=== PATIENT | male | born 1940 | race Caucasian/White ===

== ENCOUNTER 2020-07-10 06:28 | Outpatient (REF) | payer MEDICARE, OTHER, SELFPAY ==
[2020-07-10 14:31] LABS: SARS COV2 PCR INHOUSE NEGATIVE (Negative)
[2020-07-15 02:31] LABS: Bullous Pemphigoid BP 230 Ab 42 U/mL (<9)
[2020-07-15 04:06] LABS: Bullous Pempigoid BP 180 Ab 34 U/mL
== END 2020-07-10 06:29 | disposition home or self-care (01) ==
LOC: HO.HSH3W 06:28
PROVIDERS: Visit Provider Nurse Practitioner
DX: L10.9 Pemphigus, unspecified (principal); Z20.828 Contact with and (suspected) exposure to other viral communicable diseases
CPT/HCPCS: 83520; 87635

== ENCOUNTER 2020-09-13 11:31 | Outpatient (REF) | payer MEDICARE, OTHER, SELFPAY | END 2020-09-13 11:32 | disposition home or self-care (01) | LOC: HO.HSH3W 11:31 | PROVIDERS: Visit Provider Nurse Practitioner | DX: L12.0 Bullous pemphigoid (principal); R21 Rash and other nonspecific skin eruption | CPT/HCPCS: 88300; 88305 ==

== ENCOUNTER 2020-10-04 06:24 | Outpatient (REF) | payer MEDICARE, OTHER, SELFPAY ==
[2020-10-04 09:22] LABS: MANUAL DIFF FLAG NO
[2020-10-04 09:29] LABS: Basophils Percent Auto 0.3 % (0-2); Eosinophils Absolute Auto 0.1 X10*3/uL (0.0-0.4); Eosinophils Percent Auto 1.4 % (0-4); Hematocrit 35.6 % (42-52); Hemoglobin 12.2 g/dl (14.0-18.0); Imm Gran Abs Auto 0.04 X10*3/uL (0.00-0.03); Imm Gran Pct Auto 0.4 % (0.0-0.4); Lymphocytes Absolute Auto 2.1 X10*3/uL (1.2-4.9); Lymphocytes Percent Auto 22.9 % (20-40); Mean Corpuscular HGB Conc 34.3 g/dl (31.0-36.0); Mean Corpuscular Hemoglobin 33.4 pg (27.0-33.0); Mean Corpuscular Volume 97.5 fL (80-98); Mean Platelet Volume 8.6 fL (9.4-12.4); Monocytes Absolute Auto 1.5 X10*3/uL (0.1-1.2); Monocytes Percent Auto 16.1 % (2-11); Neutrophils Absolute Auto 5.3 X10*3/uL (2.0-8.3); Neutrophils Percent Auto 58.9 % (45-73); Platelet Count 161 X10*3/uL (160-400); Red Blood Count 3.65 X10*6/uL (4.60-5.80); Red Cell Distribution Width 11.9 % (11.0-16.0); White Blood Count 9.1 X10*3/uL (4.8-10.8)
[2020-10-04 11:04] LABS: Alanine Aminotransferase 13 U/L (0-40); Albumin Level 3.6 g/dL (3.5-5.0); Alkaline Phosphatase 52 U/L (39-117); Anion Gap 13 (12-20); Aspartate Amino Transferase 14 U/L (5-37); Bilirubin Total 0.6 mg/dL (0.0-1.0); Blood Urea Nitrogen 26 mg/dL (9-16); Calcium 8.7 mg/dL (8.4-10.2); Carbon Dioxide 27 mmol/L (22-29); Chloride 105 mmol/L (96-108); Estimated Glomerular Filt Rate > 60; Glucose Fasting 103 mg/dL (60-99); Potassium 3.6 mmol/l (3.3-5.1); Sodium 141 mmol/L (135-145); Total Protein 5.6 g/dL (6.5-8.0)
== END 2020-10-04 06:25 | disposition home or self-care (01) ==
LOC: HO.HSH3W 06:24
PROVIDERS: Visit Provider Nurse Practitioner
DX: D64.9 Anemia, unspecified (principal); F03.90 Unspecified dementia, unspecified severity, without behavioral disturbance, psychotic disturbance, mood disturbance, and anxiety
CPT/HCPCS: 36415; 80053; 85025

== ENCOUNTER 2021-01-25 06:47 | Outpatient (REF) | payer MEDICARE, OTHER, SELFPAY ==
[2021-01-25 08:16] LABS: MANUAL DIFF FLAG NO
[2021-01-25 08:33] LABS: Basophils Percent Auto 0.6 % (0-2); Eosinophils Absolute Auto 0.4 X10*3/uL (0.0-0.4); Eosinophils Percent Auto 5.7 % (0-4); Hematocrit 33.9 % (42-52); Hemoglobin 11.4 g/dl (14.0-18.0); Imm Gran Abs Auto 0.02 X10*3/uL (0.00-0.03); Imm Gran Pct Auto 0.3 % (0.0-0.4); Lymphocytes Absolute Auto 1.7 X10*3/uL (1.2-4.9); Lymphocytes Percent Auto 26.6 % (20-40); Mean Corpuscular HGB Conc 33.6 g/dl (31.0-36.0); Mean Corpuscular Hemoglobin 31.3 pg (27.0-33.0); Mean Corpuscular Volume 93.1 fL (80-98); Mean Platelet Volume 8.8 fL (9.4-12.4); Monocytes Percent Auto 14.7 % (2-11); Neutrophils Absolute Auto 3.4 X10*3/uL (2.0-8.3); Neutrophils Percent Auto 52.1 % (45-73); Platelet Count 184 X10*3/uL (160-400); Red Blood Count 3.64 X10*6/uL (4.60-5.80); Red Cell Distribution Width 12.3 % (11.0-16.0); White Blood Count 6.5 X10*3/uL (4.8-10.8)
[2021-01-25 09:14] LABS: Valproate 48.7 mcg/mL (50.0-100.0)
[2021-01-25 09:20] LABS: Alanine Aminotransferase 8 U/L (0-40); Albumin Level 3.4 g/dL (3.5-5.0); Alkaline Phosphatase 61 U/L (39-117); Anion Gap 11 (12-20); Aspartate Amino Transferase 13 U/L (5-37); Bilirubin Total 0.5 mg/dL (0.0-1.0); Blood Urea Nitrogen 16 mg/dL (9-16); Calcium 8.6 mg/dL (8.4-10.2); Carbon Dioxide 27 mmol/L (22-29); Chloride 106 mmol/L (96-108); Cholesterol 112 mg/dL; Estimated Glomerular Filt Rate > 60; Glucose Fasting 115 mg/dL (60-99); HDL Cholesterol 40 mg/dL; LDL Cholesterol Calculated 59 mg/dl; Potassium 3.8 mmol/L (3.3-5.1); Sodium 140 mmol/L (135-145); Total Protein 5.7 g/dL (6.5-8.0); Triglycerides 69 mg/dL
[2021-01-25 09:32] LABS: Vitamin B12 939 pg/mL (200-900)
== END 2021-01-25 06:48 | disposition home or self-care (01) ==
LOC: HO.HSH3W 06:47
PROVIDERS: Visit Provider Nurse Practitioner
DX: D64.9 Anemia, unspecified (principal); E78.5 Hyperlipidemia, unspecified; F03.90 Unspecified dementia, unspecified severity, without behavioral disturbance, psychotic disturbance, mood disturbance, and anxiety
CPT/HCPCS: 36415; 80053; 80061; 80164; 82607; 85025

== ENCOUNTER 2021-02-22 06:24 | Outpatient (REF) | payer MEDICARE, OTHER, SELFPAY ==
[2021-02-22 07:30] LABS: MANUAL DIFF FLAG NO
[2021-02-22 07:41] LABS: Basophils Percent Auto 0.5 % (0-2); Eosinophils Absolute Auto 0.3 X10*3/uL (0.0-0.4); Eosinophils Percent Auto 5.8 % (0-4); Hematocrit 33.3 % (42-52); Hemoglobin 11.1 g/dl (14.0-18.0); Imm Gran Abs Auto 0.01 X10*3/uL (0.00-0.03); Imm Gran Pct Auto 0.2 % (0.0-0.4); Lymphocytes Absolute Auto 1.9 X10*3/uL (1.2-4.9); Lymphocytes Percent Auto 32.8 % (20-40); Mean Corpuscular HGB Conc 33.3 g/dl (31.0-36.0); Mean Corpuscular Hemoglobin 30.7 pg (27.0-33.0); Mean Corpuscular Volume 92.2 fL (80-98); Mean Platelet Volume 8.7 fL (9.4-12.4); Monocytes Absolute Auto 0.7 X10*3/uL (0.1-1.2); Monocytes Percent Auto 13.1 % (2-11); Neutrophils Absolute Auto 2.7 X10*3/uL (2.0-8.3); Neutrophils Percent Auto 47.6 % (45-73); Platelet Count 228 X10*3/uL (160-400); Red Blood Count 3.61 X10*6/uL (4.60-5.80); Red Cell Distribution Width 12.1 % (11.0-16.0); White Blood Count 5.7 X10*3/uL (4.8-10.8)
== END 2021-02-22 06:25 | disposition home or self-care (01) ==
LOC: HO.HSH3W 06:24
PROVIDERS: Visit Provider Nurse Practitioner
DX: S99.922A Unspecified injury of left foot, initial encounter (principal); X58.XXXA Exposure to other specified factors, initial encounter; Y93.9 Activity, unspecified; Y92.9 Unspecified place or not applicable; Y99.9 Unspecified external cause status
CPT/HCPCS: 36415; 85025

== ENCOUNTER 2021-06-28 07:17 | Outpatient (REF) | payer MEDICARE, OTHER, SELFPAY ==
[2021-06-28 07:04] LABS: MANUAL DIFF FLAG NO
[2021-06-28 07:06] LABS: Basophils Percent Auto 0.6 % (0-2); Eosinophils Absolute Auto 0.3 X10*3/uL (0.0-0.4); Eosinophils Percent Auto 3.8 % (0-4); Hematocrit 36.2 % (42-52); Hemoglobin 12.3 g/dl (14.0-18.0); Imm Gran Abs Auto 0.03 X10*3/uL (0.00-0.03); Imm Gran Pct Auto 0.4 % (0.0-0.4); Lymphocytes Absolute Auto 1.9 X10*3/uL (1.2-4.9); Lymphocytes Percent Auto 27.7 % (20-40); Mean Corpuscular Hemoglobin 30.3 pg (27.0-33.0); Mean Corpuscular Volume 89.2 fL (80-98); Mean Platelet Volume 8.9 fL (9.4-12.4); Monocytes Absolute Auto 0.8 X10*3/uL (0.1-1.2); Neutrophils Absolute Auto 3.9 X10*3/uL (2.0-8.3); Neutrophils Percent Auto 55.5 % (45-73); Platelet Count 261 X10*3/uL (160-400); Red Blood Count 4.06 X10*6/uL (4.60-5.80); Red Cell Distribution Width 13.2 % (11.0-16.0); White Blood Count 6.9 X10*3/uL (4.8-10.8)
[2021-06-28 07:29] LABS: Alanine Aminotransferase 23 U/L (0-40); Albumin Level 3.7 g/dL (3.5-5.0); Alkaline Phosphatase 80 U/L (39-117); Anion Gap 12 (12-20); Aspartate Amino Transferase 19 U/L (5-37); Bilirubin Total 0.5 mg/dL (0.0-1.0); Blood Urea Nitrogen 20 mg/dL (9-16); Calcium 8.8 mg/dL (8.4-10.2); Carbon Dioxide 23 mmol/L (22-29); Chloride 109 mmol/L (96-108); Estimated Glomerular Filt Rate > 60; Glucose Random 103 mg/dL (60-115); Potassium 3.9 mmol/L (3.3-5.1); Sodium 140 mmol/L (135-145); Total Protein 6.1 g/dL (6.5-8.0)
== END 2021-06-28 07:18 | disposition home or self-care (01) ==
LOC: HO.HSH3W 07:17
PROVIDERS: Visit Provider Nurse Practitioner
DX: D64.9 Anemia, unspecified (principal)
CPT/HCPCS: 36415; 80053; 85025

== ENCOUNTER 2021-09-11 07:11 | Outpatient (REF) | payer MEDICARE, OTHER, SELFPAY ==
[2021-09-11 07:15] LABS: MANUAL DIFF FLAG NO
[2021-09-11 08:02] LABS: Basophils Percent Auto 0.4 % (0-2); Eosinophils Absolute Auto 0.4 X10*3/uL (0.0-0.4); Eosinophils Percent Auto 5.5 % (0-4); Hematocrit 39.5 % (42.0-52.0); Hemoglobin 13.6 g/dl (14.0-18.0); Imm Gran Abs Auto 0.01 X10*3/uL (0.00-0.03); Imm Gran Pct Auto 0.1 % (0.0-0.4); Lymphocytes Absolute Auto 1.6 X10*3/uL (1.2-4.9); Lymphocytes Percent Auto 23.8 % (20-40); Mean Corpuscular HGB Conc 34.4 g/dl (31.0-36.0); Mean Corpuscular Hemoglobin 31.1 pg (27.0-33.0); Mean Corpuscular Volume 90.2 fL (80.0-98.0); Mean Platelet Volume 8.8 fL (9.4-12.4); Monocytes Absolute Auto 0.8 X10*3/uL (0.1-1.2); Monocytes Percent Auto 11.8 % (2-11); Neutrophils Absolute Auto 3.9 x10*3/uL (2.0-8.3); Neutrophils Percent Auto 58.4 % (45-73); Platelet Count 230 X10*3/uL (160-400); Red Blood Count 4.38 X10*6/uL (4.60-5.80); Red Cell Distribution Width 12.5 % (11.0-16.0); White Blood Count 6.7 X10*3/uL (4.8-10.8)
[2021-09-11 08:21] LABS: Alanine Aminotransferase 17 U/L (0-40); Alkaline Phosphatase 95 U/L (39-117); Anion Gap 11 (12-20); Aspartate Amino Transferase 18 U/L (5-37); Bilirubin Total 0.8 mg/dL (0.0-1.0); Blood Urea Nitrogen 18 mg/dL (9-16); Calcium 9.4 mg/dL (8.4-10.2); Carbon Dioxide 26 mmol/L (22-29); Chloride 105 mmol/L (96-108); Estimated Glomerular Filt Rate > 60; Glucose Fasting 100 mg/dL (60-99); Potassium 3.6 mmol/L (3.3-5.1); Sodium 138 mmol/L (135-145); Total Protein 6.8 g/dL (6.5-8.0)
== END 2021-09-11 07:12 | disposition home or self-care (01) ==
LOC: HO.HSH3W 07:11
PROVIDERS: Visit Provider Nurse Practitioner Acute Care
DX: D64.9 Anemia, unspecified (principal); I10 Essential (primary) hypertension
CPT/HCPCS: 36415; 80053; 85025

== ENCOUNTER 2022-02-27 07:01 | Outpatient (REF) | payer MEDICARE, OTHER, SELFPAY ==
[2022-02-27 08:24] LABS: MANUAL DIFF FLAG NO
[2022-02-27 08:32] LABS: Basophils Percent Auto 0.5 % (0-2); Eosinophils Absolute Auto 0.2 X10*3/uL (0.0-0.4); Eosinophils Percent Auto 3.6 % (0-4); Hematocrit 37.9 % (42.0-52.0); Hemoglobin 12.7 g/dl (14.0-18.0); Imm Gran Abs Auto 0.02 X10*3/uL (0.00-0.03); Imm Gran Pct Auto 0.3 % (0.0-0.4); Lymphocytes Absolute Auto 1.6 X10*3/uL (1.2-4.9); Lymphocytes Percent Auto 24.2 % (20-40); Mean Corpuscular HGB Conc 33.5 g/dl (31.0-36.0); Mean Corpuscular Hemoglobin 30.8 pg (27.0-33.0); Mean Corpuscular Volume 91.8 fL (80.0-98.0); Mean Platelet Volume 9.2 fL (9.4-12.4); Monocytes Absolute Auto 0.7 X10*3/uL (0.1-1.2); Monocytes Percent Auto 11.2 % (2-11); Neutrophils Percent Auto 60.2 % (45-73); Platelet Count 222 X10*3/uL (160-400); Red Blood Count 4.13 X10*6/uL (4.60-5.80); Red Cell Distribution Width 12.7 % (11.0-16.0); White Blood Count 6.6 X10*3/uL (4.8-10.8)
[2022-02-27 08:36] LABS: Anion Gap 10 (12-20); Blood Urea Nitrogen 22 mg/dL (9-16); Calcium 9.1 mg/dL (8.4-10.2); Carbon Dioxide 28 mmol/L (22-29); Chloride 106 mmol/L (96-108); Estimated Glomerular Filt Rate > 60; Glucose Fasting 108 mg/dL (60-99); Potassium 3.9 mmol/L (3.3-5.1); Sodium 140 mmol/L (135-145)
== END 2022-02-27 07:02 | disposition home or self-care (01) ==
LOC: HO.HSH3W 07:01
PROVIDERS: Visit Provider Nurse Practitioner
DX: I10 Essential (primary) hypertension (principal)
CPT/HCPCS: 36415; 80048; 85025

== ENCOUNTER 2022-08-20 06:28 | Outpatient (REF) | payer MEDICARE, OTHER, SELFPAY ==
[2022-08-20 08:05] LABS: Basophils Percent Auto 0.5 % (0-2); Eosinophils Absolute Auto 0.1 X10*3/uL (0.0-0.4); Hematocrit 35.8 % (42.0-52.0); Hemoglobin 12.4 g/dl (14.0-18.0); Imm Gran Abs Auto 0.02 X10*3/uL (0.00-0.03); Imm Gran Pct Auto 0.2 % (0.0-0.4); Lymphocytes Absolute Auto 1.3 X10*3/uL (1.2-4.9); Mean Corpuscular HGB Conc 34.6 g/dl (31.0-36.0); Mean Corpuscular Hemoglobin 31.2 pg (27.0-33.0); Mean Corpuscular Volume 89.9 fL (80.0-98.0); Mean Platelet Volume 9.4 fL (9.4-12.4); Monocytes Absolute Auto 1.5 X10*3/uL (0.1-1.2); Monocytes Percent Auto 18.3 % (2-11); Neutrophils Absolute Auto 5.4 x10*3/uL (2.0-8.3); Platelet Count 186 X10*3/uL (160-400); Red Blood Count 3.98 X10*6/uL (4.60-5.80); Red Cell Distribution Width 12.8 % (11.0-16.0); White Blood Count 8.4 X10*3/uL (4.8-10.8)
[2022-08-20 08:43] LABS: Alanine Aminotransferase 16 U/L (0-40); Albumin Level 3.6 g/dL (3.5-5.0); Alkaline Phosphatase 78 U/L (39-117); Anion Gap 10 (12-20); Aspartate Amino Transferase 16 U/L (5-37); Bilirubin Total 0.8 mg/dL (0.0-1.0); Blood Urea Nitrogen 18 mg/dL (9-16); Calcium 8.5 mg/dL (8.4-10.2); Carbon Dioxide 26 mmol/L (22-29); Chloride 102 mmol/L (96-108); Estimated Glomerular Filt Rate > 60; Glucose Fasting 118 mg/dL (60-99); Potassium 3.4 mmol/L (3.3-5.1); Sodium 135 mmol/L (135-145)
== END 2022-08-20 06:29 | disposition home or self-care (01) ==
LOC: HO.HSH1N 06:28
PROVIDERS: Visit Provider Nurse Practitioner
DX: U07.1 COVID-19 (principal)
CPT/HCPCS: 36415; 80053; 85025

== ENCOUNTER 2023-01-27 06:36 | Outpatient (REF) | payer MEDICARE, OTHER, SELFPAY ==
[2023-01-27 06:59] LABS: Basophils Absolute Auto 0.1 X10*3/uL (0.0-0.2); Basophils Percent Auto 0.7 % (0-2); Eosinophils Absolute Auto 0.3 X10*3/uL (0.0-0.4); Eosinophils Percent Auto 3.8 % (0-4); Hemoglobin 12.5 g/dl (14.0-18.0); Imm Gran Abs Auto 0.02 X10*3/uL (0.00-0.03); Imm Gran Pct Auto 0.3 % (0.0-0.4); Lymphocytes Absolute Auto 1.8 X10*3/uL (1.2-4.9); Lymphocytes Percent Auto 24.6 % (20-40); MANUAL DIFF FLAG NO; Mean Corpuscular HGB Conc 34.7 g/dl (31.0-36.0); Mean Corpuscular Hemoglobin 31.3 pg (27.0-33.0); Mean Platelet Volume 9.3 fL (9.4-12.4); Monocytes Absolute Auto 0.8 X10*3/uL (0.1-1.2); Monocytes Percent Auto 11.7 % (2-11); Neutrophils Absolute Auto 4.2 x10*3/uL (2.0-8.3); Neutrophils Percent Auto 58.9 % (45-73); Platelet Count 201 X10*3/uL (160-400); Red Cell Distribution Width 12.4 % (11.0-16.0); White Blood Count 7.1 X10*3/uL (4.8-10.8)
[2023-01-27 12:37] LABS: Alanine Aminotransferase 13 U/L (0-40); Albumin Level 3.5 g/dL (3.5-5.0); Alkaline Phosphatase 89 U/L (39-117); Anion Gap 9 (12-20); Aspartate Amino Transferase 15 U/L (5-37); Bilirubin Total 0.9 mg/dL (0.0-1.0); Blood Urea Nitrogen 17 mg/dL (9-16); Calcium 8.6 mg/dL (8.4-10.2); Carbon Dioxide 25 mmol/L (22-29); Chloride 108 mmol/L (96-108); Estimated Glomerular Filt Rate > 60; Glucose Random 95 mg/dL (60-115); Sodium 138 mmol/L (135-145); Total Protein 5.8 g/dL (6.5-8.0)
== END 2023-01-27 06:37 | disposition home or self-care (01) ==
LOC: HO.HSH3W 06:36
PROVIDERS: Visit Provider Nurse Practitioner
DX: I10 Essential (primary) hypertension (principal)
CPT/HCPCS: 36415; 80053; 85025

== ENCOUNTER 2023-07-15 05:00 | Outpatient (REF) | payer MEDICARE, OTHER, SELFPAY ==
[2023-07-15 06:29] LABS: Cholesterol 117 mg/dL (<200); HDL Cholesterol 34 mg/dL (>40); LDL Cholesterol Calculated 67 mg/dL (<100); Triglycerides 83 mg/dL (<150)
== END 2023-07-15 05:01 | disposition home or self-care (01) ==
LOC: HO.HSH3W 05:00
PROVIDERS: Visit Provider Nurse Practitioner
DX: E78.5 Hyperlipidemia, unspecified (principal)
CPT/HCPCS: 36415; 80061

== ENCOUNTER 2023-12-11 07:12 | Outpatient (REF) | payer MEDICARE, OTHER, SELFPAY ==
[2023-12-11 07:50] LABS: Anion Gap 10 (12-20); Blood Urea Nitrogen 22 mg/dL (9-16); Calcium 8.9 mg/dL (8.4-10.2); Carbon Dioxide 25 mmol/L (22-29); Chloride 110 mmol/L (96-108); Estimated Glomerular Filt Rate > 60; Glucose Random 96 mg/dL (60-115); Potassium 3.8 mmol/L (3.3-5.1); Sodium 141 mmol/L (135-145)
== END 2023-12-11 07:13 | disposition home or self-care (01) ==
LOC: HO.HSH3W 07:12
PROVIDERS: Visit Provider Internal Medicine Endocrinology, Diabetes & Metabolism
DX: I10 Essential (primary) hypertension (principal); I25.10 Atherosclerotic heart disease of native coronary artery without angina pectoris
CPT/HCPCS: 36415; 80048

== ENCOUNTER 2024-01-28 06:33 | Outpatient (REF) | payer MEDICARE, OTHER, SELFPAY ==
[2024-01-28 06:38] LABS: MANUAL DIFF FLAG NO
[2024-01-28 07:28] LABS: Basophils Percent Auto 0.4 % (0-2); Eosinophils Absolute Auto 0.2 X10*3/uL (0.0-0.4); Eosinophils Percent Auto 2.7 % (0-4); Hemoglobin 13.4 g/dl (14.0-18.0); Imm Gran Abs Auto 0.02 X10*3/uL (0.00-0.03); Imm Gran Pct Auto 0.3 % (0.0-0.4); Lymphocytes Absolute Auto 1.5 X10*3/uL (1.2-4.9); Lymphocytes Percent Auto 21.6 % (20-40); Mean Corpuscular HGB Conc 34.4 g/dl (31.0-36.0); Mean Corpuscular Hemoglobin 31.1 pg (27.0-33.0); Mean Corpuscular Volume 90.5 fL (80.0-98.0); Mean Platelet Volume 9.3 fL (9.4-12.4); Monocytes Absolute Auto 0.7 X10*3/uL (0.1-1.2); Monocytes Percent Auto 10.3 % (2-11); Neutrophils Absolute Auto 4.6 x10*3/uL (2.0-8.3); Neutrophils Percent Auto 64.7 % (45-73); Platelet Count 210 X10*3/uL (160-400); Red Blood Count 4.31 X10*6/uL (4.60-5.80); Red Cell Distribution Width 13.2 % (11.0-16.0); White Blood Count 7.1 X10*3/uL (4.8-10.8)
[2024-01-28 07:47] LABS: Estimated Average Glucose 114 mg/dL; Hemoglobin A1c % 5.6 % (<6.0)
[2024-01-28 07:48] LABS: Alanine Aminotransferase 14 U/L (0-40); Albumin Level 3.7 g/dL (3.5-5.0); Alkaline Phosphatase 91 U/L (39-117); Anion Gap 14 (12-20); Aspartate Amino Transferase 19 U/L (5-37); Bilirubin Total 0.8 mg/dL (0.0-1.0); Blood Urea Nitrogen 21 mg/dL (9-16); Calcium 9.4 mg/dL (8.4-10.2); Carbon Dioxide 23 mmol/L (22-29); Chloride 109 mmol/L (96-108); Estimated Glomerular Filt Rate > 60; Glucose Random 106 mg/dL (60-115); Potassium 4.1 mmol/L (3.3-5.1); Sodium 142 mmol/L (135-145); Total Protein 6.6 g/dL (6.5-8.0)
[2024-01-28 08:02] LABS: Thyroid Stimulating Hormone 2.73 uIU/mL (0.32-4.0)
[2024-01-28 08:03] LABS: Prostate Specific Antigen 0.14 ng/mL (<0.05-4.0)
== END 2024-01-28 06:34 | disposition home or self-care (01) ==
LOC: HO.HSH3W 06:33
PROVIDERS: Visit Provider Nurse Practitioner
DX: Z12.5 Encounter for screening for malignant neoplasm of prostate (principal); D64.9 Anemia, unspecified; I10 Essential (primary) hypertension; I25.10 Atherosclerotic heart disease of native coronary artery without angina pectoris
CPT/HCPCS: 36415; 80053; 83036; 84153; 84443; 85025

== ENCOUNTER 2024-04-13 09:11 | Inpatient (IN) | payer MEDICARE, OTHER, SELFPAY ==
--- NOTE | ~2024-04-13 | XR_ITS ---
EXAMINATION: XR CHEST CLINICAL INFORMATION: Stroke protocol COMPARISON: None available. TECHNIQUE: Frontal view of the chest was obtained. FINDINGS: Bilateral low lung volumes. Accentuation of the bronchopulmonary vascular markings. Potential trace bilateral pleural effusions with subjacent atelectasis. No pneumothorax. Trachea is midline. Cardiac mediastinal silhouette is not enlarged. Osseous structures are intact. Soft tissues are unremarkable. XR/XR chest 1V IMPRESSION: 1. Bilateral low lung volumes. 2. Accentuation of the bronchopulmonary vascular markings. 3. Potential trace bilateral pleural effusions with subjacent atelectasis.
--- NOTE | ~2024-04-13 | MR_ITS ---
EXAMINATION: MR BRAIN WITHOUT CONTRAST CLINICAL INFORMATION: Transient ischemic attack. Facial droop. Left upper extremity weakness. Dementia. COMPARISON: CTA head and neck from 04/13/2024. TECHNIQUE: MRI of the brain was obtained using routine sequences without contrast. FINDINGS: No focal restricted diffusion is demonstrated to suggest acute or subacute cerebral ischemia. No evidence of acute or chronic hemorrhagic products on heme-sensitive imaging. Scattered and partially confluent periventricular, deep white matter, and brainstem T2 FLAIR hyperintensities consistent with moderate underlying microangiopathy. Proportional prominence of the ventricles and sulcal spaces without evidence of obstructive hydrocephalus. Normal posterior callosal angle. No abnormal mass effect. No midline shift. Normal appearance of the pituitary gland. Normal positioning of the cerebellar tonsils. Normal arterial and venous vascular flow voids are present. Normal, homogeneous marrow signal. Mild mucosal thickening of the paranasal sinuses. Moderate leftward nasal septal deviation. No signal abnormalities within the mastoids. Right-sided lens extraction. MR/MR head/brain wo con IMPRESSION: 1. No acute intracranial abnormalities. 2. Moderate underlying microangiopathy and generalized cerebral volume loss.
--- NOTE | ~2024-04-13 | CT_ITS ---
EXAMINATION: CTA NECK WITH CONTRAST (STROKE) CTA BRAIN WITH CONTRAST (STROKE) CLINICAL INFORMATION: Suspect acute stroke. Assess for major vessel occlusion. Please call report. COMPARISON: None available. TECHNIQUE: CTA of the head and neck was performed in the axial plane from the mediastinum to the skull vertex using 70 mL Omnipaque 350 intravenous contrast. Additional reformatted multiplanar images including maximum intensity projection MIP images are generated on the CT workstation. This CT examination was performed using dose optimization techniques as appropriate, variously including the following: *Automated exposure control *Adjustment of mA and/or kV according to patient size (this includes techniques or standardized protocols for targeted exams where dose is matched to indication/reason for exam; i.e. extremities or head) *Use of iterative reconstruction technique DLP: 1497 mGy-cm FINDINGS: The degree of stenosis determined by criteria similar to NASCET. CTA NECK: Three-vessel aortic arch. Atherosclerotic calcifications at the origin of the left subclavian artery and scattered through the neck great vessels without significant stenosis. Atherosclerotic calcifications at the origin of the left common carotid artery without significant stenosis. The origin of the right common carotid artery as well as the cervical segments of the bilateral common carotid arteries are patent. The common carotid artery bifurcations demonstrate mural calcifications extending into the proximal segments of the cervical internal carotid arteries. There is approximately 30% stenosis of the right carotid bulb. The remaining segments of the cervical internal carotid arteries are patent bilaterally. Incidentally noted medialization and retropharyngeal course of the proximal right cervical ICA. Nondominant right vertebral artery. The origins of the vertebral arteries demonstrate atherosclerotic calcifications causing moderate focal stenosis bilaterally. The cervical segments of the vertebral arteries are patent bilaterally. No hemodynamically significant stenosis, dissection, or aneurysm. The visualized branches of the external carotid arteries are unremarkable. CTA HEAD: Mild atherosclerotic calcifications of the bilateral carotid siphons. Anterior circulation: The petrous, cavernous, and supraclinoid segments of the internal carotid arteries are patent bilaterally. The major branches of the anterior and middle cerebral arteries as well as the anterior communicating artery complex are patent. No large vessel occlusion, saccular aneurysm, or dissection. Posterior circulation: The right intracranial vertebral artery terminates at the right PICA, normal variant. Atherosclerotic calcifications scattered through the intracranial segments of the left vertebral artery with moderate to severe focal stenosis of the distal left V3. The basilar artery is mildly diminutive in caliber, likely secondary to presence of bilateral posterior cerebral arteries. The superior cerebellar arteries arise normally from the basilar summit. No aneurysm. On delayed imaging, the venous structures demonstrate normal contrast opacification. No filling defect. No abnormal intraparenchymal enhancement. Soft tissues: No suspicious neck mass or cervical adenopathy. Lungs: Clear. Bones: No acute osseous abnormality. No lytic or blastic osseous lesions. Multilevel degenerative changes of the visualized spine. CT/CT angio head neck stroke IMPRESSION: CTA head demonstrates moderate to severe focal stenosis of the left V3 distally. Otherwise, no large vessel occlusion, saccular aneurysm, or dissection. CTA neck demonstrates moderate focal stenosis of the vertebral artery origins bilaterally secondary to atherosclerotic disease. No hemodynamically significant stenosis, dissection, or aneurysm. There are atherosclerotic calcifications at the origins of the left common carotid and left subclavian arteries without significant stenosis. This critical test result is communicated to: Nishant Vivar MD at 10:04 AM on 04/13/2024.
--- NOTE | ~2024-04-13 | CT_ITS ---
EXAMINATION: CT HEAD WITHOUT CONTRAST (STROKE PROTOCOL) CLINICAL INFORMATION: Stroke protocol. COMPARISON: None available. TECHNIQUE: Contiguous axial imaging was performed from the skull base to vertex without intravenous administration of contrast. This CT examination was performed using dose optimization techniques as appropriate, variously including the following: *Automated exposure control *Adjustment of mA and/or kV according to patient size (this includes techniques or standardized protocols for targeted exams where dose is matched to indication/reason for exam; i.e. extremities or head) *Use of iterative reconstruction technique DLP: 678 mGy-cm FINDINGS: There is prominence to the sulci and ventricles with extensive deep white matter gliosis observed. No intra or extra-axial fluid collection, hemorrhage, mass, or mass effect. Calvarium is intact. CT/CT head for stroke IMPRESSION: No acute intracranial pathology. Results will be telephoned to the emergency room physician, by the PSA.
--- NOTE | 2024-04-13 07:00 | CA_ITS ---
Transthoracic Echocardiogram Patient (Last, First, Middle): Martell Wagner E Gender: Male Date of : 1940 Age: 83 Procedure Date: 04/13/2024 Procedure Type: Transthoracic Echocardiogram Location: ER Height: 182.88 cm Weight: 99.79 kg BSA: 2.22 m2 Heart Rate: 90 bpm BP: 112 / 65 mmHg Load Out Person: PHOEBE Referring MD: Gabby MORRIS Symptoms: Tia, afib Study Quality: Technically Difficult w/Contrast ECG Rhythm: Sinus Conclusions: - The left ventricular systolic function is hyperdynamic. The visually estimated ejection fraction is >70%. - No obvious valvular pathology seen on this study. - There is mild dilatation of the sinuses of Valsalva measuring 4.10 cm and mild dilatation of the ascending aorta measuring 4.00 cm. Findings Procedure Information Contrast agent, definity, is being given per protocol without apparent complications. The quality of the study was technically difficult. The study quality is limited by the patients inability to tolerate the test and an uncooperative patient. Left Ventricle Normal left ventricular cavity size. There is normal left ventricular wall thickness. The left ventricular systolic function is hyperdynamic. The visually estimated ejection fraction is >70%. There is no evidence of regional wall motion abnormalities. Evidence suggests grade I (mild) diastolic dysfunction. Focal hypertrophy of the basal septum. Right Ventricle The right ventricle was not well visualized. There is normal right ventricular systolic function. Atria The left atrium was not well visualized. The right atrium was not well visualized. Aortic Valve There is a normal trileaflet aortic valve. There is no aortic valve stenosis. There is no aortic valve regurgitation. Mitral Valve The mitral valve was not well visualized. There is no mitral valve regurgitation. There is no mitral valve stenosis. Pulmonic Valve The pulmonic valve is likely normal. Tricuspid Valve There is no tricuspid valve regurgitation. Tricuspid regurgitation envelope is inadequate for calculation of right ventricular systolic pressure. Great Vessels There is mild dilatation of the sinuses of Valsalva measuring 4.10 cm and mild dilatation of the ascending aorta measuring 4.00 cm. Venous The inferior vena cava was not well visualized. Pericardium/Pleural There is no evidence of pericardial effusion. Prior Study Comparison No prior study available for comparison. Recommendations, Care & Conclusions No obvious valvular pathology seen on this study. Measurements 2D Linear Measurements IVSd: 0.64 0.6-0.9/0.6-1.0 cm LVIDd: 4.20 3.9-5.3/4.2-5.9 cm LVIDd Index: 1.89 2.4-3.2/2.2-3.1 cm/m2 LVIDs: 2.91 2.0-3.6 cm LVPWd: 0.79 0.7-1.1 cm LA Diam: 1.90 2.7-3.8/3.0-4.0 cm LAIDs Index: 0.86 1.5-2.3 cm/m2 LV Mass: 108.14 67-162/88-224 g LV Mass Index: 48.71 43-95/49-115 g/m2 LVOT Diam: 2.10 3.0+(-)1.3 cm 2D Systolic Function EF 4C: 85.40 >55% EF 2C: 63.60 >55% EF BiP: 76.40 >55% Mitral Valve MV Pk E: 0.85 MV PK A: 0.99 MV Decel Time: 173.00 E/A: 0.90 E'Lateral: 7.07 E'Medial: 6.09 E/E' Med: 14.00 E/E' Lat: 12.10 PHT: 51.00 MVA PHT: 4.31 Decel [place]: 4.94 Aortic Valve AoV Pk Mark: 1.13 AoV Mn Mark: 0.83 AoV VTI: 0.18 AoV Pk Grad: 5.00 Aov Mn Grad: 3.00 SIDNEY Cont.VTI: 3.46 LVOT LVOT Pk Mark: 1.04 LVOT Mn Mark: 0.77 LVOT VTI: 0.18 LVOT Pk Grad: 4.00 LVOT Mn Grad: 3.00 LVOT Diam: 2.10 LVOT Area: 3.46 Diastolic Function MV Pk E: 0.85 MV Pk A: 0.99 E/A: 0.90 E'Medial: 6.09 E/E' Med: 14.00 E' Laterial: 7.07 E/E' Lat: 12.10 Right Ventricle TAPSE (mm): 24.90 TVS' Mark: 13.60 Great Vessels Aorta Sinus of Valsalva: 4.10 2.0-3.5 cm Ao Asc: 4.00 2.1-3.4 cm Pulmonary Valve PV Pk Mark: 0.95 Peak PV Grad: 4.00 Updated in Other Vendor System with Status of Final Ronn Groves MD electronically signed on 04/13/2024 4:11:40 PM with status of Final
--- NOTE | 2024-04-13 09:12 | ECG_ITS ---
Test Reason : STROKE Blood Pressure : / mmHG Vent. Rate : 079 BPM Atrial Rate : 079 BPM P-R Int : 176 ms QRS Dur : 076 ms QT Int : 364 ms P-R-T Axes : 052 034 042 degrees QTc Int : 417 ms Normal sinus rhythm Low voltage QRS Borderline ECG No previous ECGs available Referred By: Nishant Vivar Electronically Signed By:VIKA RAMSEY
--- NOTE | 2024-04-13 09:16 | ED_ITS ---
HPI - General Adult General Chief complaint: Stroke Stated complaint: STROKE ALERT,UNK LWKT,R DROOP, FROM HS PER EMS Source: EMS Mode of arrival: EMS Limitations: altered mental status History of Present Illness ED Provider: Suleiman ARCHER HPI narrative: 83 year old male pmhx of afib (not anticoagulated), htn, hld, vit b12 deficiency, dementia presents w/ ams, facial droop X unclear amount of time. Coming from [facility] in [place], per EMS they don't know when patients last known well time was and they are not sure if this facial droop his his baseline or not. NIHSS- unable to preform as patient is not following commands Related Data Allergies Allergy/AdvReac Type Severity Reaction Status Date / Time Unable to Assess Allergy Verified 04/13/24 09:53 Review of Systems 2 Review of Systems: Yes all other systems are reviewed and are negative [facility] Past Medical History Attestation statement: The following information was validated with the patient. Source: old records reviewed and nursing notes reviewed Social History Social History Smoked in Last 30 Days: No Use of substances other than those prescribed or required for medical reasons: No Advance Directives: No Advance Directives Information Provided: Yes Do you have a plan to hurt others: No Plan Physical Exam ED Vital Signs: Vital Signs - 24 hr 04/13/24 09:51 Temperature 98.2 F Pulse Rate 83 Respiratory Rate 12 Blood Pressure 132/72 Pulse Oximetry 96 Oxygen Delivery Method Room Air BMI result Body Mass Index 30.0 vss Appearance: Alert. Not oriented to person, place, time or situation.? No acute distress.? Head: Normocephalic, atraumatic, no step-offs or deformities Eyes: Pupils equal, round and reactive to light.? Neck: Normal inspection.? Neck supple.? CVS: Normal heart rate and rhythm.? Pulses normal.? Respiratory: No respiratory distress.? Breath sounds normal.? Abdomen: Soft and nontender.? Skin: Skin warm and dry.? Normal skin color.? Normal skin turgor.? Extremities: No lower extremity edema.? No calf ttp. 5/5 strength to bilateral upper and lower extremities Neuro: Alert. Not oriented to person, place, time or situation.? No motor deficit.? No sensory deficit. Not following commands. Course Reevaluation(s) Reevaluation #1: CT head with no acute intracranial pathology. CTA with moderate to severe focal stenosis of the left V3 distally otherwise no large vessel occlusion, saccular aneurysm or distention. Moderate focal stenosis of the vertebral artery bilaterally secondary to arthrosclerotic disease. Labs, imaging pending. Time: 10:16 Reevaluation #2: CBC with a normocytic anemia. Chemistry unremarkable no acute findings needing intervention. Normal cholesterol. Normal troponin, nonischemic EKG. I did have a lengthy conversation with patient's daughter who is his healthcare proxy, who visits him often, right-sided facial droop is new, and has improved while patient has been in the department. He is having normal demeanor however he has been having frequent falls and just overall decompensation. Time: 12:08 Medications Administered Discontinued Medications Generic Name Dose Route Start Last Admin Trade Name Freq PRN Reason Stop Dose Admin Iohexol 100 ml 04/13/24 09:35 04/13/24 09:35 Iohexol 350 Mg/Ml 100 Ml Infus..Btl IV 04/13/24 09:36 70 ml ONCE ONE Administration Medical Decision Making Medical Decision Making [facility] Narrative: 0912 83 yo m presents w/ weaknesss, facial droop and ams X unclear amount of time PE- normal strength, patient confused, noted right-sided facial droop, unable to follow commands. Unable to obtain accurate NIH stroke scale. Will rule out intracranial hemorrhage/stroke as well as metabolic derangements, urinary tract infection. No signs of traumatic injury to chest, abdomen or pelvis. Plan labs, imaging, urine, stroke protocol Differential Diagnosis Differential Diagnoses: The differential diagnosis associated with the presentation includes Will rule out intracranial hemorrhage/stroke as well as metabolic derangements, urinary tract infection. No signs of traumatic injury to chest, abdomen or pelvis. Admission/Observation Consideration of admission/observation: Escalation of care including admission/observation considered possible Lab Data [facility] Lab Attestation statement: I reviewed the patient's lab results. 04/13/24 10:19 04/13/24 10:19 Labs: Lab Results 04/13/24 04/13/24 04/13/24 Range/Units 09:14 09:15 09:48 WBC (4.8-10.8) X10*3/uL RBC (4.60-5.80) X10*6/uL Hgb (14.0-18.0) g/dl Hct (42.0-52.0) % MCV (80.0-98.0) fL MCH (27.0-33.0) pg MCHC (31.0-36.0) g/dl RDW (11.0-16.0) % Plt Count (160-400) X10*3/uL MPV (9.4-12.4) fL Immature Gran % (Auto) (0.0-0.4) % Neut % (Auto) (45-73) % Lymph % (Auto) (20-40) % Reeves % (Auto) (2-11) % Eos % (Auto) (0-4) % Baso % (Auto) (0-2) % Lymph # (Auto) (1.2-4.9) X10*3/uL Reeves # (Auto) (0.1-1.2) X10*3/uL Eos # (Auto) (0.0-0.4) X10*3/uL Baso # (Auto) (0.0-0.2) X10*3/uL Abs Immat Gran (auto) (0.00-0.03) X10*3/uL Absolute Neuts (auto) (2.0-8.3) x10*3/uL Absolute Nucleated RBC (0.0-0.012) X10*3/uL Nucleated RBC % (auto) (0.0-0.2) /100WBC PT (11.1-13.3) SEC Whole Blood PT 13.5 (11.1-13.5) sec INR (0.9-1.1) Whole Blood INR 1.1 (0.9-1.1) APTT (26.0-36.8) SEC Sodium (135-145) mmol/L Potassium (3.3-5.1) mmol/L Chloride (96-108) mmol/L Carbon Dioxide (22-29) mmol/L Anion Gap (12-20) BUN (9-16) mg/dL Creatinine (0.5-1.4) mg/dL Estim Creat Clear Calc Estimated GFR POC Glucose 147 H 152 H (60-115) mg/dL Random Glucose (60-115) mg/dL Calcium (8.4-10.2) mg/dL Troponin I High Sens (<3.5-35.0) ng/L Triglycerides (<150) mg/dL Cholesterol (<200) mg/dL LDL Cholesterol, Calc (<100) mg/dL HDL Cholesterol (>40) mg/dL 04/13/24 04/13/24 Range/Units 09:52 10:19 WBC 7.9 (4.8-10.8) X10*3/uL RBC 4.08 L (4.60-5.80) X10*6/uL Hgb 13.1 L (14.0-18.0) g/dl Hct 37.7 L (42.0-52.0) % MCV 92.4 (80.0-98.0) fL MCH 32.1 (27.0-33.0) pg MCHC 34.7 (31.0-36.0) g/dl RDW 12.8 (11.0-16.0) % Plt Count 181 (160-400) X10*3/uL MPV 8.9 L (9.4-12.4) fL Immature Gran % (Auto) 0.3 (0.0-0.4) % Neut % (Auto) 69.0 (45-73) % Lymph % (Auto) 15.0 L (20-40) % Reeves % (Auto) 14.2 H (2-11) % Eos % (Auto) 1.1 (0-4) % Baso % (Auto) 0.4 (0-2) % Lymph # (Auto) 1.2 (1.2-4.9) X10*3/uL Reeves # (Auto) 1.1 (0.1-1.2) X10*3/uL Eos # (Auto) 0.1 (0.0-0.4) X10*3/uL Baso # (Auto) 0.0 (0.0-0.2) X10*3/uL Abs Immat Gran (auto) 0.02 (0.00-0.03) X10*3/uL Absolute Neuts (auto) 5.5 (2.0-8.3) x10*3/uL Absolute Nucleated RBC 0.000 (0.0-0.012) X10*3/uL Nucleated RBC % (auto) 0.0 (0.0-0.2) /100WBC PT 12.7 (11.1-13.3) SEC Whole Blood PT 12.5 (11.1-13.5) sec INR 1.0 (0.9-1.1) Whole Blood INR 1.0 (0.9-1.1) APTT 31.8 (26.0-36.8) SEC Sodium 138 (135-145) mmol/L Potassium 3.9 (3.3-5.1) mmol/L Chloride 107 (96-108) mmol/L Carbon Dioxide 22 (22-29) mmol/L Anion Gap 13 (12-20) BUN 17 H (9-16) mg/dL Creatinine 0.71 (0.5-1.4) mg/dL Estim Creat Clear Calc 98.3 Estimated GFR > 60 POC Glucose (60-115) mg/dL Random Glucose 140 H (60-115) mg/dL Calcium 9.1 (8.4-10.2) mg/dL Troponin I High Sens < 2.7 (<3.5-35.0) ng/L Triglycerides 89 (<150) mg/dL Cholesterol 108 (<200) mg/dL LDL Cholesterol, Calc 51 (<100) mg/dL HDL Cholesterol 40 L (>40) mg/dL Independent Interpretation I performed an independent interpretation of an: CT Scan (CT/CT head for stroke IMPRESSION: No acute intracranial pathology. Results will be telephoned to the emergency room physician, by the PSA.) Interpretation: CT/CT angio head neck stroke IMPRESSION: CTA head demonstrates moderate to severe focal stenosis of the left V3 distally. Otherwise, no large vessel occlusion, saccular aneurysm, or dissection. CTA neck demonstrates moderate focal stenosis of the vertebral artery origins bilaterally secondary to atherosclerotic disease. No hemodynamically significant stenosis, dissection, or aneurysm. There are atherosclerotic calcifications at the origins of the left common carotid and left subclavian arteries without significant stenosis. This critical test result is communicated to: Nishant Vivar MD at 10:04 AM on 04/13/2024. Radiology Impression Discussion of test interpretation with radiology: I have reviewed the radiologist's reading. Independent Historian Clinical information obtained from an independent historian. History obtained from or confirmed by: Other (daughter) External Record Review External record reviewed: Inpatient record, Office record, Outpatient record, Prior outpatient labs, Prior outpatient radiology, Primary care record and Outside ED record Chronic Conditions Patient?s care impacted by: Other (pmhx of afib (not anticoagulated), htn, hld, vit b12 deficiency, dementia ) Critical Care Time Critical Care Time Critical Care Time: Yes Total Critical Care Time: 35 Attestation: I attest to this time spent taking care of the patient, obtaining history, physical, reviewing labs, imaging, speaking to my attending, speaking to specialist. Discharge Plan Discharge Clinical Impression: Facial droop, Physical deconditioning, Brain TIA Patient Disposition: Admitted As Inpatient Referrals: Physician,Felice J [Primary Care Provider] - 2 days Print Language: Turkish
[2024-04-13 09:20] LABS: Prothrombin Time Whole Bld POC 13.5 sec (11.1-13.5); ~PT, ~INR - Anti Coag Clinic 1.1 (0.9-1.1)
[2024-04-13 09:22] LABS: Glucose, Whole Blood 147 mg/dL (60-115)
[2024-04-13] MEDS: iohexoL 350 MG/ML 100 ML INFUS..BTL IV (09:35)
[2024-04-13 09:51] VITALS: BP 132/70; BP 132/72; PULSE 83; PULSE 89; RESP 12; TEMP 36.8; O2SAT 94; O2SAT 96
[2024-04-13 10:01] LABS: Prothrombin Time Whole Bld POC 12.5 sec (11.1-13.5)
[2024-04-13 10:02] LABS: Glucose, Whole Blood 152 mg/dL (60-115)
[2024-04-13 10:24] LABS: MANUAL DIFF FLAG NO
[2024-04-13 10:25] LABS: Basophils Percent Auto 0.4 % (0-2); Eosinophils Absolute Auto 0.1 X10*3/uL (0.0-0.4); Eosinophils Percent Auto 1.1 % (0-4); Hematocrit 37.7 % (42.0-52.0); Hemoglobin 13.1 g/dl (14.0-18.0); Imm Gran Abs Auto 0.02 X10*3/uL (0.00-0.03); Imm Gran Pct Auto 0.3 % (0.0-0.4); Lymphocytes Absolute Auto 1.2 X10*3/uL (1.2-4.9); Mean Corpuscular HGB Conc 34.7 g/dl (31.0-36.0); Mean Corpuscular Hemoglobin 32.1 pg (27.0-33.0); Mean Corpuscular Volume 92.4 fL (80.0-98.0); Mean Platelet Volume 8.9 fL (9.4-12.4); Monocytes Absolute Auto 1.1 X10*3/uL (0.1-1.2); Monocytes Percent Auto 14.2 % (2-11); Neutrophils Absolute Auto 5.5 x10*3/uL (2.0-8.3); Platelet Count 181 X10*3/uL (160-400); Red Blood Count 4.08 X10*6/uL (4.60-5.80); Red Cell Distribution Width 12.8 % (11.0-16.0); White Blood Count 7.9 X10*3/uL (4.8-10.8)
[2024-04-13 10:40] LABS: Prothrombin Time 12.7 SEC (11.1-13.3)
[2024-04-13 10:43] LABS: Partial Thromboplastin Time 31.8 SEC (26.0-36.8)
[2024-04-13 10:58] LABS: Troponin-I High Sensitivity < 2.7 ng/L (<3.5-35.0)
[2024-04-13 11:08] LABS: Stroke Lab Use COMPLETE
[2024-04-13 11:28] LABS: Anion Gap 13 (12-20); Blood Urea Nitrogen 17 mg/dL (9-16); Calcium 9.1 mg/dL (8.4-10.2); Carbon Dioxide 22 mmol/L (22-29); Chloride 107 mmol/L (96-108); Cholesterol 108 mg/dL (<200); Creatinine Clr Calc Pharmacy 98.3; Estimated Glomerular Filt Rate > 60; Glucose Random 140 mg/dL (60-115); HDL Cholesterol 40 mg/dL (>40); LDL Cholesterol Calculated 51 mg/dL (<100); Potassium 3.9 mmol/L (3.3-5.1); Sodium 138 mmol/L (135-145); Triglycerides 89 mg/dL (<150)
[2024-04-13 12:33] VITALS: BP 112/65; PULSE 85; RESP 13; O2SAT 95
--- NOTE | 2024-04-13 14:32 | P.HPHOSP_ITS ---
History of Present Illness Date of Service: 04/13/24 Attending physician on admission: Pablo Sosa Chief Complaint: facial droop 83 year old male pmhx of afib (not anticoagulated), htn, hld, vit b12 deficiency, dementia presents w/ R facial droop and LUE weakness X unclear amount of time. Symptoms resolved at time of exam. Coming from [facility] in [place], per EMS they don't know when patients last known well time. Per his daughter who is at bedside, she is unsure why the patient is not on ac. The patient is bedbound at baseline but she is concerned about recurrent stroke. Reports she would like him to be anticoagulated given his atrial fibrillation. The patient only responds yes to every question, poor historian secondary to his dementia. 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 No history of cigarette smoking or substance use. Since arrival, vital stable. Normotensive. Hematology studies unremarkable except for a mild normocytic anemia. Renal function normal, electrolyte levels normal. Glucose 152. Total cholesterol 108, LDL 51 . CXR unremarkable. Head CT negative for any acute intracranial abnormality. Head/neck CTA negative for any large vessel occlusion or hemodynamically significant stenosis. EKG shows normal sinus rhythm, rate [address]/T-wave abnormality. Patient will be admitted for further evaluation and management of acute TIA. Review of Systems 2 Review of Systems: Yes Unobtainable due to mental status [facility] Medical History Vitamin B12 deficiency Atrial fibrillation Hyperlipidemia Vascular dementia Hypertension Social History Smoked in Last 30 Days: No Use of substances other than those prescribed or required for medical reasons: No Advance Directives: No Advance Directives Information Provided: Yes Do you have a plan to hurt others: No Plan Meds Allergies Allergy/AdvReac Type Severity Reaction Status Date / Time Unable to Assess Allergy Verified 04/13/24 09:53 Active Medications: Current Medications Acetaminophen (Acetaminophen 325 Mg Tablet) 650 mg PO Q6H PRN PRN Reason: Pain, Mild (Pain Scale 1-3), fever or headache Apixaban (Apixaban 5 Mg Tablet) 5 mg PO BID [facility] Aspirin (Aspirin Enteric Coated 81 Mg Tablet.) 81 mg PO DAILY [facility] Atorvastatin Calcium (Atorvastatin Calcium 80 Mg Tablet) 80 mg PO DAILY [facility] Calcium Carbonate (Calcium Carbonate 750 Mg Tab.Chew) 750 mg PO Q4H PRN PRN Reason: Heartburn Magnesium Hydroxide (Milk Of Magnesia 30 Ml Oral.Susp) 30 ml PO DAILY PRN PRN Reason: Constipation Melatonin (Melatonin 3 Mg Tablet) 6 mg PO BEDTIME PRN PRN Reason: Insomnia Sodium Chloride (0.9 % Sodium Chloride Flush 3 Ml Syringe) [facility] Medications ?Medication ?Instructions ?Recorded ?Confirmed ?Last Taken ?Type acetaminophen 325 mg capsule 650 mg PO BID PRN Fever Or Pain 04/13/24 04/13/24 04/12/24 History (Tylenol) amlodipine 5 mg tablet 5 mg PO DAILY 04/13/24 04/13/24 04/12/24 History aspirin 81 mg chewable tablet 81 mg PO DAILY 04/13/24 04/13/24 04/12/24 History atorvastatin 40 mg tablet 40 mg PO BEDTIME 04/13/24 04/13/24 04/12/24 History bisacodyl 10 mg rectal suppository 10 mg MI DAILY PRN Constipation 04/13/24 04/13/24 Unknown History carboxymethylcellulose sodium 1 % 2 drp ophthalmic (eye) DAILY PRN 04/13/24 04/13/24 Unknown History eye drops Dry Eye(S) cyanocobalamin (vitamin B-12) 500 500 mcg PO DAILY 04/13/24 04/13/24 04/12/24 History mcg tablet gabapentin 300 mg capsule 300 mg PO TID 04/13/24 04/13/24 04/12/24 History lorazepam 0.5 mg tablet 0.5 mg PO DAILY PRN Anxiety 04/13/24 04/13/24 Unknown History magnesium hydroxide 400 mg/5 mL 30 ml PO BEDTIME PRN Constipation 04/13/24 04/13/24 Unknown History oral suspension (Milk of Magnesia) metoprolol tartrate 25 mg tablet 25 mg PO BID 04/13/24 04/13/24 04/12/24 History sennosides 8.6 mg tablet (senna) 8.6 mg PO BEDTIME 04/13/24 04/13/24 04/11/24 History sodium phosphates 19 gram-7 118 ml MI DAILY PRN Constipation 04/13/24 04/13/24 Unknown History gram/118 mL enema (Fleet Enema) Physical Exam 2 Vital Signs and Narrative: Vital Signs: Last Vital Signs Temp 98.2 F 04/13/24 09:51 Pulse 85 04/13/24 12:33 Resp 13 04/13/24 12:33 BP 112/65 04/13/24 12:33 Pulse Ox 95 04/13/24 12:33 O2 Del Method Room Air 04/13/24 12:33 BMI result Body Mass Index 30.0 Constitutional - Awake and Alert, No apparent distress Eyes - PERRLA, EOMI Cardiovascular - S1S2, RRR, No edema Respiratory - Normal lung expansion, Normal respiratory effort, No respiratory distress, CTA bilaterally Gastrointestinal - NT / ND; +BS; No rebound or guarding Extremities - no calf tenderness bilaterally, no swelling Skin - Warm/Dry Neurological - Alert & largely nonverbal- responds yea/yes to all questions (baseline), unabel to follow commands, bue and ble have equal strength and good tone, PERRLA, unable to further assess cranial nerves Psychological - Appropriate affect Results Labs 04/13/24 10:19 04/13/24 10:19 Labs: Laboratory Results - last 24 hr 04/13/24 04/13/24 04/13/24 09:14 09:15 09:48 MCV MCH MCHC RDW Plt Count MPV Immature Gran % (Auto) Neut % (Auto) Lymph % (Auto) [place] % (Auto) Eos % (Auto) Baso % (Auto) Lymph # (Auto) [place] # (Auto) Eos # (Auto) Baso # (Auto) Abs Immat Gran (auto) Absolute Neuts (auto) Absolute Nucleated RBC Nucleated RBC % (auto) PT Whole Blood PT 13.5 INR Whole Blood INR 1.1 APTT Anion Gap Estim Creat Clear Calc Estimated GFR POC Glucose 147 H 152 H Random Glucose Calcium Troponin I High Sens Triglycerides Cholesterol LDL Cholesterol, Calc HDL Cholesterol 04/13/24 04/13/24 09:52 10:19 MCV 92.4 MCH 32.1 MCHC 34.7 RDW 12.8 Plt Count 181 MPV 8.9 L Immature Gran % (Auto) 0.3 Neut % (Auto) 69.0 Lymph % (Auto) 15.0 L [place] % (Auto) 14.2 H Eos % (Auto) 1.1 Baso % (Auto) 0.4 Lymph # (Auto) 1.2 [place] # (Auto) 1.1 Eos # (Auto) 0.1 Baso # (Auto) 0.0 Abs Immat Gran (auto) 0.02 Absolute Neuts (auto) 5.5 Absolute Nucleated RBC 0.000 Nucleated RBC % (auto) 0.0 PT 12.7 Whole Blood PT 12.5 INR 1.0 Whole Blood INR 1.0 APTT 31.8 Anion Gap 13 Estim Creat Clear Calc 98.3 Estimated GFR > 60 POC Glucose Random Glucose 140 H Calcium 9.1 Troponin I High Sens < 2.7 Triglycerides 89 Cholesterol 108 LDL Cholesterol, Calc 51 HDL Cholesterol 40 L Imaging Radiologist's Impressions: Impressions Head CT 04/13/24 09:26 IMPRESSION: No acute intracranial pathology. Results will be telephoned to the emergency room physician, by the PSA. Head/Neck CTA 04/13/24 09:35 IMPRESSION: CTA head demonstrates moderate to severe focal stenosis of the left V3 distally. Otherwise, no large vessel occlusion, saccular aneurysm, or dissection. CTA neck demonstrates moderate focal stenosis of the vertebral artery origins bilaterally secondary to atherosclerotic disease. No hemodynamically significant stenosis, dissection, or aneurysm. There are atherosclerotic calcifications at the origins of the left common carotid and left subclavian arteries without significant stenosis. This critical test result is communicated to: Nishant Vivar MD at 10:04 AM on 04/13/2024. Chest X-Ray 04/13/24 10:25 IMPRESSION: 1. Bilateral low lung volumes. 2. Accentuation of the bronchopulmonary vascular markings. 3. Potential trace bilateral pleural effusions with subjacent atelectasis. Assessment and Plan (1) Brain TIA: Status: Acute Plan 83 year old male pmhx of afib (not anticoagulated), htn, hld, vit b12 deficiency, dementia presents w/ ams, facial droop X unclear amount of time. Coming from [facility] in [place], per EMS they don't know when patients last known well time admitted for further evaluation management of TIA # acute TIA -head CT negative for acute intracranial abnormality. CTA head/neck negative for large vessel occlusion or hemodynamically significance stenosis -MRI brain ordered -failed nursing swallow evaluation. NURSE INFORMATICS EDUCATOR evaluation pending. Keep NPO, continue IVF for now -300 mg p.r. aspirin now, continue ASA 81 mg daily once cleared by NURSE INFORMATICS EDUCATOR -LDL 51, atorvastatin 40 mg daily -echocardiogram -advanced to cardiac diet pending NURSE INFORMATICS EDUCATOR evaluation -neuro checks, stroke education -monitor on telemetry # paroxysmal atrial fibrillation-rate controlled -previously not on anticoagulation. Discussed risks versus benefits with daughter and she would like to initiate Eliquis 5 mg b.i.d. for anticoagulation. No contraindications to anticoagulation -hold metoprolol to allow for permissive hypertension # hypertension -hold antihypertensive in setting above to allow for permissive hypertension # hyperlipidemia -initiate statin as above # vascular dementia -mentation baseline per daughter at bedside DVT prophylaxis-Eliquis full code- discussed with daughter who is HCP Patient requires inpatient stay at least 2 midnights for management and further monitoring of acute TIA requiring further imaging, expert consultation, and close monitoring for evolving symptoms Quality Stroke Does the patient have a stroke diagnosis?: Yes Reason for No Anti-thrombotic by Day Two: Drug treatment not indicated VTE Prior VTE?: No VTE Risk Level:: Medical - moderate - high VTE Device Contraindication: Treatment Not Indicated VTE Drug Contraindication: N/A - Med Ordered
--- NOTE | 2024-04-13 14:47 | PHA.MEDREC ---
Pharmacy Consult ? Medication Reconciliation Pharmacy has completed the medication reconciliation. Utilized list from [facility] to confirm med list.
--- NOTE | 2024-04-13 14:51 | MHC.STROKE ---
Spoke with primary RN who had completed the Nursing swallow screen, pt unable to participate in the eval as he would not follow directions. DENTAL RESIDENT contacted and they will do a bedside swallow evaluation. Also, PT/OT not ordered per hospitalist as patient is bed bound and would not be able to participate in these services.
[2024-04-13 15:34] VITALS: BP 114/33; PULSE 89; RESP 13; O2SAT 97
[2024-04-13] MEDS: Aspirin 300 MG SUPP.RECT PR (15:43)
[2024-04-13] MEDS: LORazepam 2 MG/ML VIAL 0.5 MG IVPUSH (15:47)
[2024-04-13] MEDS: 0.9 % Sodium Chloride 1,000 ML 100 ML IVCONT (15:48)
[2024-04-13] MEDS: 0.9 % Sodium Chloride Flush 3 ML SYRINGE IVFLUSH (16:08)
--- NOTE | 2024-04-13 16:19 | PC.NURSE ---
skin on coccyx area is red but skin is intact. condom cath applied as incontinent of urine.
--- NOTE | 2024-04-13 16:23 | PM.NEUROCN ---
History of Present Illness Data of Consult Service Date: 04/13/24 Primary Care Provider: Unknown Physician HPI Reason for consult: ?TIA This is a 83 year old male with h/o afib (not anticoagulated), htn, hld, vit b12 deficiency, dementia presents from [facility] w/ R facial droop and LUE weakness for unclear amount of time. Symptoms resolved by the time of exam. Last known well time unknown. Per his daughter who is at bedside, she is unsure why the patient is not on anticoagulants. The patient is bedbound at baseline but she is concerned about recurrent stroke. Reports she would like him to be anticoagulated given his atrial fibrillation. The patient only responds yes to every question, poor historian secondary to his dementia. 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 No history of cigarette smoking or substance use. Since arrival, vital stable. Normotensive. Hematology studies unremarkable except for a mild normocytic anemia. Renal function normal, electrolyte levels normal. Glucose 152. Total cholesterol 108, LDL 51 . CXR unremarkable. Head CT negative for any acute intracranial abnormality. Head/neck CTA negative for any large vessel occlusion or hemodynamically significant stenosis. Right V3 distal stenosis. EKG shows normal sinus rhythm, rate [address]/T-wave abnormality. [facility] Past Medical History Medical History Vitamin B12 deficiency Atrial fibrillation Hyperlipidemia Vascular dementia Hypertension Social History Social History Smoked in Last 30 Days: No Use of substances other than those prescribed or required for medical reasons: No Advance Directives: No Advance Directives Information Provided: Yes Do you have a plan to hurt others: No Plan Meds Allergies Allergy/AdvReac Type Severity Reaction Status Date / Time Unable to Assess Allergy Verified 04/13/24 09:53 Active Medications: Current Medications Acetaminophen (Acetaminophen 325 Mg Tablet) 650 mg PO Q6H PRN PRN Reason: Pain, Mild (Pain Scale 1-3), fever or headache Apixaban (Apixaban 5 Mg Tablet) 5 mg PO BID EDY Aspirin (Aspirin Enteric Coated 81 Mg Tablet.Dr) 81 mg PO DAILY EDY Atorvastatin Calcium (Atorvastatin Calcium 40 Mg Tablet) 40 mg PO DAILY EDY Calcium Carbonate (Calcium Carbonate 750 Mg Tab.Chew) 750 mg PO Q4H PRN PRN Reason: Heartburn Sodium Chloride (Ns) 1,000 mls @ 100 mls/hr IVCONT .Q10H [facility] Last Admin: 04/13/24 15:48 Dose: 100 mls/hr Magnesium Hydroxide (Milk Of Magnesia 30 Ml Oral.Susp) 30 ml PO DAILY PRN PRN Reason: Constipation Melatonin (Melatonin 3 Mg Tablet) 6 mg PO BEDTIME PRN PRN Reason: Insomnia Sodium Chloride (0.9 % Sodium Chloride Flush 3 Ml Syringe) 3 ml IVFLUSH QSHIFT [facility] Last Admin: 04/13/24 16:08 Dose: 3 ml Home Medications ?Medication ?Instructions ?Recorded ?Confirmed ?Last Taken ?Type acetaminophen 325 mg capsule 650 mg PO BID PRN Fever Or Pain 04/13/24 04/13/24 04/12/24 History (Tylenol) amlodipine 5 mg tablet 5 mg PO DAILY 04/13/24 04/13/24 04/12/24 History aspirin 81 mg chewable tablet 81 mg PO DAILY 04/13/24 04/13/24 04/12/24 History atorvastatin 40 mg tablet 40 mg PO BEDTIME 04/13/24 04/13/24 04/12/24 History bisacodyl 10 mg rectal suppository 10 mg NM DAILY PRN Constipation 04/13/24 04/13/24 Unknown History carboxymethylcellulose sodium 1 % 2 drp ophthalmic (eye) DAILY PRN 04/13/24 04/13/24 Unknown History eye drops Dry Eye(S) cyanocobalamin (vitamin B-12) 500 500 mcg PO DAILY 04/13/24 04/13/24 04/12/24 History mcg tablet gabapentin 300 mg capsule 300 mg PO TID 04/13/24 04/13/24 04/12/24 History lorazepam 0.5 mg tablet 0.5 mg PO DAILY PRN Anxiety 04/13/24 04/13/24 Unknown History magnesium hydroxide 400 mg/5 mL 30 ml PO BEDTIME PRN Constipation 04/13/24 04/13/24 Unknown History oral suspension (Milk of Magnesia) metoprolol tartrate 25 mg tablet 25 mg PO BID 04/13/24 04/13/24 04/12/24 History sennosides 8.6 mg tablet (senna) 8.6 mg PO BEDTIME 04/13/24 04/13/24 04/11/24 History sodium phosphates 19 gram-7 118 ml NM DAILY PRN Constipation 04/13/24 04/13/24 Unknown History gram/118 mL enema (Fleet Enema) Physical Exam Vital Signs: Vital Signs: Last Vital Signs Temp 98.2 F 04/13/24 09:51 Pulse 89 04/13/24 15:34 Resp 13 04/13/24 15:34 BP 114/33 L 04/13/24 15:34 Pulse Ox 97 04/13/24 15:34 O2 Del Method Room Air 04/13/24 15:34 BMI result Body Mass Index 30.0 Neuro: Other: Limited examination with poor patient cooperation. He has significant dementia. He is bedbound. There is no obvious facial asymmetry and he moves all 4 extremities against gravity. Results Labs 04/13/24 10:19 04/13/24 10:19 Labs: Short CBC 04/13/24 Range/Units 10:19 WBC 7.9 (4.8-10.8) X10*3/uL Hgb 13.1 L (14.0-18.0) g/dl Hct 37.7 L (42.0-52.0) % Plt Count 181 (160-400) X10*3/uL BMP 04/13/24 10:19 Sodium 138 Potassium 3.9 Chloride 107 Carbon Dioxide 22 BUN 17 H Creatinine 0.71 Calcium 9.1 Assessment and Plan (1) Brain TIA: Status: Acute Possible TIA with with some facial drooping. Her symptoms had resolved. Him and unsure if there was a minor stroke. There is no major occlusions on the CTA. Would recommend MRI of the brain to see if there was an acute infarct. If it is positive, that would make her stronger case for anticoagulating him because of his history of intermittent atrial fibrillation. Otherwise, he should be continued and aspirin 81 mg a day. Procedures Date of Service Date of Service: 04/13/24
--- NOTE | 2024-04-13 17:04 | MHC.SL.SWA ---
Speech Pathologist Impression: Risk of Aspiration Due to: Neurological Condition Reduced Cognition Dysphasia Diet Status: Liquid Consistency and Strategies for Safe Swallow: Liquid Intake Recommendation: NPO Solid Food Consistency: Dietary Recommendations: NPO Additional Modifications to Solid Foods: Pt was refusing Thin Liquid water and Puree Solid (Pudding). He was verbally reply that he wanted something to eat or drink with, yes , but would bat items away and turn his head to avoid. His Daughter was able to feed him a few bites of pudding under PLANT WORKER supervision. He demonstrated mild oral delay, and mild oral residue, but no overt s/s of aspiration. His Dtr reports he was eating [employer] burgers and fries (finger foods) at baseline. He has been having increased difficult with utensils. As this is a limited exam no formal diet is recommended at this time. Essential Medications, CRUSHED in PUREE, can be attempted based on these results. However his participation in accepting the medications is not certain depending on his altered mental status. PLANT WORKER will continually re-assess his ability to participate in his safest, least restrictive diet throughout admission. Oral Medication Intake: Crushed with Puree Please contact the pharmacy regarding appropriate crushable or liquid drug formulations that are available whenever modified delivery is recommended. Compensatory Strategies and Precautions to be Taken for Safe Swallow: Sitting Upright (90 deg) Small Bites and Sips Alternate Liquids/Solids Rate of Ingestion Change Supervision While Eating and Drinking for Safe Swallow: Total Assistance (1:1) Foods to Avoid: Swallowing Recommended Treatments: Compens. Strategy Educat. Recommendation for Speech: Inpatient Speech Therapy Comment: Frequency/Duration: Daily Timeline to reassess: PRN [employer] Clinican/Clinical Fellow: No Supervisory Statement: I have reviewed and agree with the student/clinical fellow's documentation: N/A Speech Language Pathologist: Gopal Ray M.A., [facility]-PL[employer]
[2024-04-13 18:34] VITALS: BMI 29.6
[2024-04-14] VITALS: BP 161/77; PULSE 86; RESP 20; TEMP 37.2; O2SAT 97
[2024-04-14] MEDS: 0.9 % Sodium Chloride 1,000 ML 100 ML IVCONT ×2 (01:06→09:52)
[2024-04-14] MEDS: 0.9 % Sodium Chloride Flush 3 ML SYRINGE IVFLUSH (01:08)
[2024-04-14 04:00] VITALS: BP 133/75; PULSE 83; RESP 20; TEMP 36.3; O2SAT 95
--- NOTE | 2024-04-14 07:29 | P.DS_ITS ---
DS: Providers Provider Date of Service: 04/14/24 Date of admission: 04/13/24 13:10 Date of discharge: 04/14/24 Primary care physician: Unknown Physician Admitting clinician: Gabby Looney Attending physician on admission: Pablo Sosa Consults: 04/13/24 13:11 Consult to Neurology Routine Consulting Provider: [facility] Reason for consultation: Tia Attending physician on discharge: eGrald Cohen Discharging clinician: Gabby Looney DS: Diagnosis Discharge Diagnosis (1) Brain TIA: Status: Acute DS: Summary Hospital Course Hospital Course: HPI on admission by this provider 04/14: Chief Complaint: facial droop 83 year old male pmhx of afib (not anticoagulated), htn, hld, vit b12 deficiency, dementia presents w/ R facial droop and LUE weakness X unclear amount of time. Symptoms resolved at time of exam. Coming [facility] [place], per EMS they don't know when patients last known well time. Per his daughter who is at bedside, she is unsure why the patient is not on ac. The patient is bedbound at baseline but she is concerned about recurrent stroke. Reports she would like him to be anticoagulated given his atrial fibrillation. The patient only responds yes to every question, poor historian secondary to his dementia. 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 No history of cigarette smoking or substance use. Since arrival, vital stable. Normotensive. Hematology studies unremarkable except for a mild normocytic anemia. Renal function normal, electrolyte levels normal. Glucose 152. Total cholesterol 108, LDL 51 . CXR unremarkable. Head CT negative for any acute intracranial abnormality. Head/neck CTA negative for any large vessel occlusion or hemodynamically significant stenosis. EKG shows normal sinus rhythm, rate [address]/T-wave abnormality. Patient will be admitted for further evaluation and management of acute TIA. Hospital course: Hospital course uneventful. Pt admitted to med/tele for management of TIA. At time of admission, symptoms of left upper extremity weakness and right-sided facial droop had fully resolved. Patient is disoriented and largely nonverbal at baseline secondary to vascular dementia. He is bed-bound so PT/OT was not consulted as patient would not have benefitted from services. Discussion was had with patient's daughter who is healthcare proxy about risks and benefits of initiating anticoagulation given history of atrial fibrillation. He has no contraindications to anticoagulation. Ultimately, he was started on Eliquis 5 mg b.i.d. given normal renal function despite age. He was evaluated by Neurology and MRI of the brain negative for any acute intracranial abnormalities shows moderate underlying microangiopathy and generalized cerebral volume loss consistent with his vascular dementia. He did undergo echocardiogram which john wed hyperdynamic left ventricular systolic function with EF greater than 70% but no valvular abnormalities. There is also mild dilatation of the sinuses of Valsalva measuring 4.10 cm in mild dilatation of the ascending aorta measuring 4.0 cm. Continue asa 81mg daily for anitplatelet therapy. He did initially failed bedside swallow evaluation but was re-evaluated by speech language pathology recommending pureed diet with thin liquids. Recommending small sips and 90 degree upright seating for all feeds. Recommending small bites/sips with alternate liquids and solids. Medications recommended to be crushed with puree. Monitor on telemetry and maintained normal sinus rhythm throughout admission. Blood pressures remained stable. MOLST form completed with patient's daughter/healthcare proxy who specifies that she would like the patient to be full code and should obese be transferred to the hospital. He will be discharged back to the [facility] in [place] where he resides for long-term care. He should continue Eliquis 5 mg twice daily given history of atrial fibrillation for stroke prevention. He should resume metoprolol 25 mg b.i.d. on discharge along with amlodipine 5 mg daily for blood pressure control. Continue atorvastatin 40 mg daily. LDL at goal at 51. Continue gabapentin 300 mg t.i.d. for neuropathy and lorazepam as needed for anxiety. Follow up with PCP. Status at Discharge Functional status at discharge: bed bound Overall status at discharge: patient is back to baseline Time Attestation Discharge Coordination Time (in mins): 40 Quality: Safe Use of Opioids Does Pt have an Active Cancer Diagnosis on the Problem List?: No Quality: Stroke Does the patient have a stroke diagnosis?: Yes Reason for No Anti-thrombotic at DC: N/A - Med Ordered Reason for No Anticoagulant at DC: N/A - Med Ordered Reason Not Initiating IV-Tpa: Drug treatment not indicated Reason for No Anti-thrombotic by Day Two: Drug treatment not indicated Reason for No Statin at DC: N/A - Med Ordered Physical Exam Vital Signs: Vital Signs: Last Vital Signs Temp 97.3 F 04/14/24 04:00 Pulse 83 04/14/24 04:00 Resp 20 04/14/24 04:00 BP 133/75 04/14/24 04:00 Pulse Ox 95 04/14/24 04:00 O2 Del Method Room Air 04/14/24 04:00 BMI result Body Mass Index 29.6 DS: Data Data Completed and Pending Labs on day of discharge: Laboratory Results - last 24 hr 04/13/24 04/13/24 04/13/24 09:14 09:15 09:48 WBC RBC Hgb Hct MCV MCH MCHC RDW Plt Count MPV Immature Gran % (Auto) Neut % (Auto) Lymph % (Auto) Mills % (Auto) Eos % (Auto) Baso % (Auto) Lymph # (Auto) Mills # (Auto) Eos # (Auto) Baso # (Auto) Abs Immat Gran (auto) Absolute Neuts (auto) Absolute Nucleated RBC Nucleated RBC % (auto) PT Whole Blood PT 13.5 INR Whole Blood INR 1.1 APTT Sodium Potassium Chloride Carbon Dioxide Anion Gap BUN Creatinine Estim Creat Clear Calc Estimated GFR POC Glucose 147 H 152 H Random Glucose Calcium Troponin I High Sens Triglycerides Cholesterol LDL Cholesterol, Calc HDL Cholesterol 04/13/24 04/13/24 09:52 10:19 WBC 7.9 RBC 4.08 L Hgb 13.1 L Hct 37.7 L MCV 92.4 MCH 32.1 MCHC 34.7 RDW 12.8 Plt Count 181 MPV 8.9 L Immature Gran % (Auto) 0.3 Neut % (Auto) 69.0 Lymph % (Auto) 15.0 L Mills % (Auto) 14.2 H Eos % (Auto) 1.1 Baso % (Auto) 0.4 Lymph # (Auto) 1.2 Mills # (Auto) 1.1 Eos # (Auto) 0.1 Baso # (Auto) 0.0 Abs Immat Gran (auto) 0.02 Absolute Neuts (auto) 5.5 Absolute Nucleated RBC 0.000 Nucleated RBC % (auto) 0.0 PT 12.7 Whole Blood PT 12.5 INR 1.0 Whole Blood INR 1.0 APTT 31.8 Sodium 138 Potassium 3.9 Chloride 107 Carbon Dioxide 22 Anion Gap 13 BUN 17 H Creatinine 0.71 Estim Creat Clear Calc 98.3 Estimated GFR > 60 POC Glucose Random Glucose 140 H Calcium 9.1 Troponin I High Sens < 2.7 Triglycerides 89 Cholesterol 108 LDL Cholesterol, Calc 51 HDL Cholesterol 40 L Discharge Plan Discharge Anticipated Discharge Date/Time: 04/14/24 14:43 Patient Disposition: Xfer SNF Discharge Diagnosis: TIA Referrals: [facility] [facility] [Outside] - 1 Week Physician,Unknown J [Primary Care Provider] - 2 days Discharge Medications: New Eliquis 5 mg Tablet 5 mg PO BID Qty: 180 0RF Continued atorvastatin 40 mg tablet 40 mg PO BEDTIME sennosides [senna] 8.6 mg Tablet 8.6 mg PO BEDTIME amlodipine 5 mg tablet 5 mg PO DAILY lorazepam 0.5 mg Tablet 0.5 mg PO DAILY PRN (Reason: Anxiety) magnesium hydroxide [Milk of Magnesia] 400 mg/5 mL Suspension 30 ml PO BEDTIME PRN (Reason: Constipation) Rx Instructions: For no BM in 3 days cyanocobalamin (vitamin B-12) 500 mcg Tablet 500 mcg PO DAILY bisacodyl 10 mg Suppository 10 mg SC DAILY PRN (Reason: Constipation) Patient Comments: For no BM in 3 days Rx Instructions: For no BM in 3 days Fleet Enema 19-7 gram/118 mL Enema 118 ml SC DAILY PRN (Reason: Constipation) gabapentin 300 mg capsule 300 mg PO TID metoprolol tartrate 25 mg tablet 25 mg PO BID Rx Instructions: Hold for heart rate less then 60 acetaminophen [Tylenol] 325 mg Capsule 650 mg PO BID MDD 3 gm /24hours PRN (Reason: Fever Or Pain) carboxymethylcellulose sodium 1 % Drops 2 drp OPHTHALMIC (EYE) DAILY MDD 4 times/24h PRN (Reason: Dry Eye(S)) aspirin 81 mg Tablet,Chewable 81 mg PO DAILY Discharge Orders: Discharge Order (Routine); Ordered 04/14/24 Ordered By: Gabby Looney Diet: pureed diet. see haily summa Activity on Discharge: As tolerated Stand Alone Forms: Patient Portal Discharge page Print Language: Serbian Care Plan Goals: Continue eliquis 5mg BID for stroke prevention given history of atrial fibrillation. Continue aspirin 81 mg daily and atorvastatin 40 mg daily for stroke prevention. Health Concerns: TIA Atrial fibrillation Plan of Treatment: TIA -brain MRI negative for acute intracranial abnormality. Full symptom resolution by time of admission -initiated on Eliquis 5 mg twice daily for stroke prevention given history of atrial fibrillation. Discussed risk versus benefits. The patient's daughter/healthcare proxy who is in agreement with therapy. No contraindication to therapy -Continue ASA 81 mg daily -LDL 51, at goal. Continue atorvastatin 40 mg daily -follow-up with PCP Assessment: See above. See discharge summary
[2024-04-14 07:30] VITALS: BP 139/66; PULSE 83; RESP 18; TEMP 36.6; O2SAT 98
[2024-04-14 07:37] VITALS: BP 158/86; PULSE 58; RESP 18; TEMP 36.6; O2SAT 96
[2024-04-14 08:14] LABS: MANUAL DIFF FLAG NO
[2024-04-14 08:20] LABS: Basophils Percent Auto 0.6 % (0-2); Eosinophils Absolute Auto 0.2 X10*3/uL (0.0-0.4); Eosinophils Percent Auto 2.3 % (0-4); Hematocrit 37.5 % (42.0-52.0); Hemoglobin 12.9 g/dl (14.0-18.0); Imm Gran Abs Auto 0.02 X10*3/uL (0.00-0.03); Imm Gran Pct Auto 0.3 % (0.0-0.4); Lymphocytes Absolute Auto 1.2 X10*3/uL (1.2-4.9); Mean Corpuscular HGB Conc 34.4 g/dl (31.0-36.0); Mean Corpuscular Hemoglobin 31.6 pg (27.0-33.0); Mean Corpuscular Volume 91.9 fL (80.0-98.0); Mean Platelet Volume 8.9 fL (9.4-12.4); Monocytes Percent Auto 14.2 % (2-11); Neutrophils Absolute Auto 4.5 x10*3/uL (2.0-8.3); Neutrophils Percent Auto 65.6 % (45-73); Platelet Count 170 X10*3/uL (160-400); Red Blood Count 4.08 X10*6/uL (4.60-5.80); Red Cell Distribution Width 12.9 % (11.0-16.0); White Blood Count 6.9 X10*3/uL (4.8-10.8)
[2024-04-14 08:30] LABS: Anion Gap 13 (12-20); Blood Urea Nitrogen 10 mg/dL (9-16); Calcium 8.7 mg/dL (8.4-10.2); Carbon Dioxide 20 mmol/L (22-29); Chloride 110 mmol/L (96-108); Creatinine Clr Calc Pharmacy 108.4; Estimated Glomerular Filt Rate > 60; Glucose Random 107 mg/dL (60-115); Potassium 3.5 mmol/L (3.3-5.1); Sodium 139 mmol/L (135-145)
--- NOTE | 2024-04-14 08:46 | MHC.CM.PN ---
Patient has Dementia; CM spoke with Daughter/Doug @ [phone] and addressed IMM with her (original will be mailed certified letter to Daughter and a copy has been placed on the chart). Goal is for Patient to return to [facility] and CM has initiated and will follow for dc planning.
--- NOTE | 2024-04-14 10:03 | MHC.SLORD ---
Speech Language Pathology Order Status: KNITTING TESTER attempted to see patient to attempt swallow eval this morning. Patient swatting at KNITTING TESTER's hand as she attempted feeding. Patient closing mouth tightly and turning head away despite encouragement to eat and drink. Per RN, patient also refused his morning meds. Plan to re-attempt later today.
[2024-04-14] MEDS: Aspirin Enteric Coated 81 MG TABLET.DR PO (11:39)
[2024-04-14] MEDS: Cyanocobalamin (Vitamin B-12) 500 MCG TABLET PO (11:40)
[2024-04-14] MEDS: Apixaban 5 MG TABLET PO (11:40)
[2024-04-14] MEDS: Atorvastatin Calcium 40 MG TABLET PO (11:40)
[2024-04-14] MEDS: Gabapentin 300 MG CAPSULE PO ×2 (11:40→15:07)
[2024-04-14 11:41] VITALS: BP 127/68; PULSE 82; RESP 18; TEMP 36.2; O2SAT 96
--- NOTE | 2024-04-14 11:55 | MHC.SL.DTX ---
Dysphagia Diet modifications: Last documented Solid diet consistencies: NPO Last documented Liquid consistency: NPO Last documented Medication Administration: Changes made to current diet?: Yes Liquid Consistency and Strategies: Liquid Intake Recommendation: Thin Compensatory Strategies for Safe Swallow: Small Sips Compensatory Strategies for Safe Swallow(b): Sitting Upright (90 deg) Small Bites and Sips Alternate Liquids/Solids Rate of Ingestion Change Avoid Specific Foods Solid Food Consistency: Dietary Recommendations: Pureed (NDD1) Oral Medication Intake: Crushed with Puree Strategies and Precautions to be Taken for Safe Swallow: Sitting Upright (90 deg) Small Bites and Sips Alternate Liquids/Solids Rate of Ingestion Change Avoid Specific Foods Supervision While Eating and/Drinking: Total Assistance (1:1) Foods to Avoid: Mixed consistencies (i.e., soups with broth, fruit cups, cereal and milk). Swallowing Recommended Treatments: Compens. Strategy Educat. Level of Impact on: Daily activities: Severe Interpersonal interactions: Education: None Employment: None Community: Severe Prognosis for Improvement: Fair Recommendation for Speech: Inpatient Speech Therapy Comment: Frequency/Duration: Daily Date Range for Service Req: Timeline to reassess: PRN Additional Comments: Treatment: Per RN, Pt refused his morning medications. LONG LINES OPERATOR attempted this morning and Pt had a similar presentation. RN notified LONG LINES OPERATOR upon arrival of his Dtr and Sister. He is now on the Med Tele floor and smiling profusely while exploring a [employer] stimulus book. He initially reject Thin Liquid (French ice) offered to him by spoon by LONG LINES OPERATOR. His Dtr attempted, but was also unsuccessful. He was given a cup and spoon with Puree Solid (Vanilla Pudding), which he accepted and began feeding himself for x2-3 bites before he started playing with the food. He also accepted a cup full of Thin Liquid (Apple Juice), which he brought to his mouth and taking x3-4 small sips was able to finish the cups with no overt s/s of aspiration. Dtr reports that he does well with foods he can vegetable picker with his fingers (cameroonian fries, burgers). She also expresses that she thinks he would do better in a more natural/familiar environment. LONG LINES OPERATOR explained that he could be re-assessed by LONG LINES OPERATOR on returning to the Home to get him back stayer to his baseline diet, to which she verbalized understanding. LONG LINES OPERATOR recommends PUREE SOLIDS (NDD1) and THIN LIQUIDS. MEDS CRUSHED in PUREE (Vanilla Pudding). He will require 1:1 FEEDING ASSISTANCE. Pt does better when he is provided items rather than have them given to him. Recommend continued re-assessment at his next level of care to provide further recommendations for allowable food items and feeding instructions. Commissioned Security Officer Clinican/Clinical Fellow: No Supervisory Statement: I have reviewed and agree with the student/clinical fellow's documentation: N/A Speech Language Pathologist: Gopal Ray M.A., CCC-LONG LINES OPERATOR
--- NOTE | 2024-04-14 14:57 | MHC.CM.PN ---
Patient has been medically cleared for dc to return to [facility] today at 5:30, via [facility]. CM spoke with Daughter/Doug @ [phone] and informed her of the dc plan.
[2024-04-14 14:59] VITALS: BP 133/65; PULSE 93; RESP 18; TEMP 37; O2SAT 96
--- NOTE | 2024-04-14 17:06 | PC.NURSE ---
report given to RN at [facility] at 1700
== END 2024-04-14 17:54 | disposition skilled nursing facility (03) | DRG 69 ==
LOC: HO.ED 12:12 → HO.EDOVER 14:16 → HO.IMC 17:00
PROVIDERS: Physician Assistant; Admitting Provider Physician Assistant; Emergency Provider Emergency Medicine Emergency Medical Services; Visit Provider Physician Assistant
DX: G45.9 Transient cerebral ischemic attack, unspecified (principal); G83.24 Monoplegia of upper limb affecting left nondominant side; R29.810 Facial weakness; F01.50 Vascular dementia, unspecified severity, without behavioral disturbance, psychotic disturbance, mood disturbance, and anxiety; D64.9 Anemia, unspecified; Z74.01 Bed confinement status; Z79.01 Long term (current) use of anticoagulants; Z79.82 Long term (current) use of aspirin; Z79.899 Other long term (current) drug therapy
CPT/HCPCS: 36415; 70450; 70496; 70498; 70551; 71045; 80048; 80061; 82947; 84484; 85025; 85610; 85730; 92526; 92610; 93005; 93306; 99285; J2060; Q9957; Q9967

== ENCOUNTER → 2024-04-13 09:12 | Outpatient (BNV) | payer MEDICARE, OTHER, SELFPAY | PROVIDERS: Admitting Provider Physician Assistant; Emergency Provider Emergency Medicine Emergency Medical Services; Visit Provider Internal Medicine | DX: I42.2 Other hypertrophic cardiomyopathy (principal); G45.9 Transient cerebral ischemic attack, unspecified | CPT/HCPCS: 93306 ==

== ENCOUNTER → 2024-04-13 13:10 | Outpatient (BNV) | payer MEDICARE, OTHER, SELFPAY | PROVIDERS: Admitting Provider Physician Assistant; Emergency Provider Emergency Medicine Emergency Medical Services; Visit Provider Psychiatry & Neurology Neurology | DX: G45.9 Transient cerebral ischemic attack, unspecified (principal) | CPT/HCPCS: 99222 ==

== ENCOUNTER → 2024-04-13 13:10 | Outpatient (BNV) | payer MEDICARE, OTHER, SELFPAY | PROVIDERS: Admitting Provider Physician Assistant; Emergency Provider Emergency Medicine Emergency Medical Services; Visit Provider Physician Assistant | DX: G45.9 Transient cerebral ischemic attack, unspecified (principal) | CPT/HCPCS: 99223; 99239 ==

== ENCOUNTER 2024-04-19 06:48 | Outpatient (REF) | payer MEDICARE, OTHER, SELFPAY ==
[2024-04-19 06:51] LABS: MANUAL DIFF FLAG NO
[2024-04-19 07:39] LABS: Basophils Percent Auto 0.7 % (0-2); Eosinophils Absolute Auto 0.2 X10*3/uL (0.0-0.4); Eosinophils Percent Auto 3.5 % (0-4); Hematocrit 35.4 % (42.0-52.0); Hemoglobin 12.4 g/dl (14.0-18.0); Imm Gran Abs Auto 0.01 X10*3/uL (0.00-0.03); Imm Gran Pct Auto 0.2 % (0.0-0.4); Lymphocytes Absolute Auto 1.3 X10*3/uL (1.2-4.9); Lymphocytes Percent Auto 21.8 % (20-40); Mean Corpuscular Hemoglobin 31.6 pg (27.0-33.0); Mean Corpuscular Volume 90.1 fL (80.0-98.0); Mean Platelet Volume 9.1 fL (9.4-12.4); Monocytes Absolute Auto 0.8 X10*3/uL (0.1-1.2); Monocytes Percent Auto 13.4 % (2-11); Neutrophils Absolute Auto 3.6 x10*3/uL (2.0-8.3); Neutrophils Percent Auto 60.4 % (45-73); Platelet Count 208 X10*3/uL (160-400); Red Blood Count 3.93 X10*6/uL (4.60-5.80); Red Cell Distribution Width 12.3 % (11.0-16.0)
[2024-04-19 07:58] LABS: Alanine Aminotransferase 17 U/L (0-40); Albumin Level 3.6 g/dL (3.5-5.0); Alkaline Phosphatase 87 U/L (39-117); Anion Gap 12 (12-20); Aspartate Amino Transferase 19 U/L (5-37); Bilirubin Total 0.7 mg/dL (0.0-1.0); Blood Urea Nitrogen 14 mg/dL (9-16); Calcium 8.9 mg/dL (8.4-10.2); Carbon Dioxide 23 mmol/L (22-29); Chloride 108 mmol/L (96-108); Estimated Glomerular Filt Rate > 60; Glucose Random 101 mg/dL (60-115); Potassium 3.7 mmol/L (3.3-5.1); Sodium 139 mmol/L (135-145); Total Protein 6.5 g/dL (6.5-8.0)
== END 2024-04-19 06:49 | disposition home or self-care (01) ==
LOC: HO.HSH3W 06:48
PROVIDERS: Visit Provider Nurse Practitioner
DX: R60.0 Localized edema (principal)
CPT/HCPCS: 36415; 80053; 85025

== ENCOUNTER 2024-06-09 14:25 | Outpatient (REF) | payer MEDICARE, OTHER, SELFPAY ==
--- NOTE | ~2024-06-09 | FL_ITS ---
EXAMINATION: Modified Barium Swallow CLINICAL INFORMATION: Dysphagia COMPARISON: None TECHNIQUE: Modified barium swallow was performed under lateral fluoroscopy with patient in standing position. Barium mixed with solids and liquids of different consistencies was administered by the speech pathologist. Examination was recorded in the fluoroscopy suite. FINDINGS: Trace laryngeal penetration is seen with thin barium. No subglottic/tracheal aspiration was observed. FLUOROSCOPY TIME: 2 minutes 59 seconds Number of Spot Images: N/A DOSE AREA PRODUCT: 518.5 uGy-m2 (microgray-meter squared) FL/FL Modified Barium Swallow IMPRESSION: 1. Trace laryngeal penetration is seen with thin barium. No subglottic/tracheal aspiration was observed. Refer to the speech therapy report for further clarification This procedure was performed by Maurilio Hernandez PA-C, and supervised by Dr. Bailey Electronically signed by: Brian Bailey MD 06/14/2024 01:01 PM EDT
--- NOTE | 2024-06-10 15:13 | MHC.SL.IMP ---
Date of Plan of Treatment: 06/09/24 Onset of Symptoms/Illness: 04/13/24 Date Treatment Started: 06/09/24 Admitting Diagnosis: Dysphagia Primary Speech & Language Diagnosis: R13.12 Oropharyngeal Phase Dysphagia Reason for Today's Visit: 36264 Modified Barium Swallow Study Pre-evaluation Dietary Consistencies: Chopped/Advanced (NDD3) Pre-evaluation Liquid Consistency: Thin Pre-evaluation Medication Administration: Crushed with Puree Medical History: Modified Barium Swallow Study Fluoroscopic Evaluation of Swallowing Function CPT Code 36670 Evaluation Year: 2023 Reason for Study: Hx dysphagia Referring Physician: Ilene Mcdaniels NP Evaluating Clinician: Anna Mendoza MA, CCC-METAL PUNCH PRESS OPERATOR Study Number: 1 Patient Name: Martell Wagner Status: Outpatient, Wheelchair Age: 83 Gender: Male Medical History Medical History Vitamin B12 deficiency Atrial fibrillation Hyperlipidemia Vascular dementia Hypertension Current (pre-evaluation) Intake/Diet: Route: PO Diet Grade: Mechanical Soft/ Advanced Dysphagia Diet Liquid Consistencies: Thin Pre-Study Functional Oral Intake Scale (FOIS): 5- Total oral intake of multiple consistencies requiring special preparation Pain: None reported at time of study SUBJECTIVE: Patient is an 83 year old male, former army medic and current resident of the [facility], who was referred for a modified barium swallow study by Ilene Mcdaniels NP. Patient has history of dementia and recent hospitalization for stroke. At baseline, he is confused, bedbound, and dependent for all ADL?s. He does not follow commands and is an unreliable historian, as his daughter reports he often responds to most questions with ?yeah.? Patient was seen by the METAL PUNCH PRESS OPERATOR at [facility] during his recent admission in March for left facial droop and left upper extremity weakness with concern for stroke. Patient was started on a pureed diet with thin liquids, though he often refused feeding from METAL PUNCH PRESS OPERATOR and medications from nursing staff. Notes sent from the METAL PUNCH PRESS OPERATOR at the [facility] indicate that patient?s swallow has improved and he is eating a soft mechanical diet, equivalent to NDD3, at baseline. His daughter reports he is able to eat foods such as a tuna fish sandwich, though he is observed to sometimes pack his mouth full of food. Patient did not follow commands for oral mech examination. He appears to have adequate dentition for mastication. Food and Liquid Trials: Oral Impairment: Lip Closure: 0=No labial escape Oral Impairment: Tongue Control During Bolus Hold: Did not test Oral Impairment: Bolus Preparation/Mastication: 2=Disorganized chewing/mashing with solid pieces of bolus Oral Impairment: Bolus Transport/Lingual Motion: 3=Repetitive/disorganized tongue motion Oral Impairment: Oral Residue: 2=Residue collection on oral structures Oral Impairment:Initiation of Pharyngeal Swallow: 3=Bolus head in pyriforms Pharyngeal Impairment: Soft Palate Elevation: 0=No bolus between soft palate (SP)/pharyngeal wall (PW) Pharyngeal Impairment: Laryngeal Elevation: 1=Partial thyroid cartilage/arytenoids to epiglottic petiole movement Pharyngeal Impairment: Anterior Hyoid Excursion: 1=Partial anterior movement Pharyngeal Impairment: Epiglottic Movement: 1=Partial inversion Pharyngeal Impairment: Laryngeal Vestibular Closure:: 1=Incomplete: narrow column air/contrast in laryngeal vestibule Pharyngeal Impairment: Pharyngeal Stripping Wave: 1=Present: diminished Pharyngeal Impairment: Pharyngeal Contraction: Did not test Pharyngeal Impairment: Pharyngoesophageal Segment Openin=Complete distension and complete duration: no obstruction of flow Pharyngeal Impairment: Tongue Base (TB) Retraction: 2=Narrow column of contrast/air between TB and posterior PW Pharyngeal Impairment: Pharyngeal Residue: 2=Collection of residue within or on pharyngeal structures Pharyngeal Impairment: Esophageal Clearance Upright Position: Did not test Impressions and Recommendations OBJECTIVE: Time-out: performed at 15:00 Evaluation Start: 14:30; Stop: 14:35 Patient Positioning: Seated 70-90 degrees Viewing Planes: LATERAL ONLY Contrast: MBSImP? Standardized Protocol using commercially prepared, standardized Barium viscosities, including: Varibar? THIN LIQUID (40% w/v, <15 cps) , 1/2 Shortbread Cookie (1 x1 x.25 ) MBSImP ID: [id number] MBSImP Results: Lip closure for intraoral bolus containment resulted in no labial escape. Tongue control during bolus hold could not be assessed due to logistical reasons not related to physiologic impairment. Bolus preparation and mastication demonstrated disorganized chewing/mashing with solid pieces of the bolus unchewed. Bolus transport/lingual motion was with repetitive/disorganized motion of the tongue. Oral residue was a collection on oral structures. Initiation of the pharyngeal swallow occurred when the bolus head was in the pyriform sinuses. Soft palate elevation resulted in no bolus between the soft palate and the pharyngeal wall. Laryngeal elevation was decreased, with partial superior movement of the thyroid cartilage/partial approximation of the arytenoids to the epiglottic petiole. Anterior hyoid excursion demonstrated partial anterior movement. Epiglottic movement resulted in partial inversion. Laryngeal vestibular closure was incomplete, with a narrow column of air/contrast noted within the laryngeal vestibule at the height of the swallow. Pharyngeal stripping wave was present, but diminished. Pharyngeal contraction could not be determined due to logistical reasons not related to physiologic impairment. Pharyngoesophageal segment opening was completely distended for complete duration with no obstruction of bolus flow. Tongue base retraction allowed a narrow column of contrast or air between the retracted tongue base and the posterior pharyngeal wall. Pharyngeal residue was a collection of residue within or on pharyngeal structures. Esophageal clearance in the upright position could not be assessed due to logistical reasons not related to physiologic impairment. Oral Impairment Score: 10 (absence of score, component 2) Pharyngeal Impairment Score: 9 (absence of score, component 13) Esophageal Impairment Score: --- (absence of score, component 17) Laryngeal Penetration and Aspiration: Penetration was observed in today's study. Thin Contrast entered the airway, remained above the vocal folds, and was ejected from the airway. ASSESSMENT: Clinician Assessment: This exam was conducted by the radiologist and the speech pathologist. Patient was seated upright in his wheelchair for lateral view only. He fed himself with trials of Thin (via teaspoon, single cup sips, and single straw sips), Puree, Ground, and Regular solid consistencies. Patient demonstrated adequate lip closure with no anterior escape. Mastication was characterized by disorganized, anterior chewing pattern, especially with harder solids. Note repetitive tongue rocking motion during bolus transport. Pharyngeal swallow trigger was delayed, initiated as the bolus head reached the pyriform sinuses. Post-swallow there was minimal lingual residue, which cleared with subsequent swallows. No evidence of nasopharyngeal reflux. Partial laryngeal elevation with partial epiglottic inversion and incomplete laryngeal vestibular closure. There was penetration of trace contrast above the vocal folds, which subsequently cleared, on trials of thin liquid administered by straw. No evidence of aspiration during this exam. Mild retention on the tongue base and valleculae cleared with liquid wash. Liquid Intake Recommendation: Thin Liquid Intake Strategies: Small Sips Dietary Recommendations: Chopped/Advanced (NDD3) Medication Administration: Crushed with Puree Please contact the pharmacy regarding appropriate crushable or liquid drug formulations that are available whenever modified delivery is recommended. Compensatory Strategies Recommended: Sitting Upright (90 deg), Double Swallow, Small Bites and Sips, Alternate Liquids/Solids, Rate of Ingestion Change, Oral Check, Avoid Specific Foods Supervision during eating and or drinking: Total Supervision (1:1) Recommended Treatments: Compens. Strategy Educat. Recommendation for Speech Therapy: Speech Therapy through Rehab Facility Text Comment: Intake Recommendations: Route: PO Diet Grade: Chopped/Advanced Solids (National Dysphagia Diet Level III- NDD3) Liquid Consistencies: Thin Post-Study Functional Oral Intake Scale (FOIS): 5- Total oral intake of multiple consistencies requiring special preparation Moderate impairments of the oral phase characterized by disorganized chewing, maladaptive tongue rocking movements, and reduced tongue base retraction. Note incomplete laryngeal elevation with partial epiglottic inversion. Trace penetration seen when liquids were given by straw. No evidence of aspiration with intake of liquids and solids. Mild oral and pharyngeal residue cleared with dry swallow and liquid wash. Recommend patient continue on soft diet for ease of mastication and thin liquids with aspiration precautions: direct supervision at meal time; ensure upright seating during PO intake and for at least 30 minutes afterwards; if using a straw monitor for patient to take small individual sips, otherwise avoid use; patient to take small bites/sips; alternate bites with sips of liquid. Therapy Recommendations: Recommend METAL PUNCH PRESS OPERATOR at long-term to follow-up for continued PO trials and patient/family education. The following compensatory strategies and/or therapeutic exercises will be part of the upcoming therapy/management plan: Liquid Wash Additional Swallow(s) per Bolus Prognosis for Improvement: The prognosis for the patient to meet nutritional needs by mouth is good based on degree of impairment. Short Term Goals: ? Diet - The patient will tolerate a modified dysphagia diet with thin liquids without signs or symptoms of penetration/aspiration 100% of the time. - The patient will participate in therapeutic PO trials with the METAL PUNCH PRESS OPERATOR. ? Guidelines - The patient will comply with/recall the following guidelines/strategies with maximum cuing: Liquid Wash, Additional Swallow(s) per Bolus. ? Education - The patient, family, caregiver will verbalize/demonstrate understanding of the results of this evaluation, the above recommendations, and the swallowing guidelines. Frequency/Duration: PRN at Date Range for Service Requested: Timeline to reassess: Clinician - Supplemental, Miscellaneous Communication: It is important to note MBSS objective studies are snapshots in time and Patient function might vary with factors such as time of day or concomitant medical conditions. For this reason, the final treatment plan for this patient should rest with their medical care team. Additional recommendations should be considered with the totality of the Patient in mind. Thank for the opportunity to participate in the care of this patient. If you have any questions about the content of this report, please contact the [facility] at [facility]. Education: Education regarding findings from today's study and plans for therapy were provided to Family/caregiver only through Verbal Instruction, Written Instruction. Understanding was expressed by the Family/caregiver only. Mailroom Supervisor Clinician/Clinical Fellow: No Supervisory Statement: N/A Speech Language Pathologist: Anna Mendoza M.A., CCC-METAL PUNCH PRESS OPERATOR
== END 2024-06-09 14:26 | disposition home or self-care (01) ==
LOC: HO.XRAY 14:25
PROVIDERS: Visit Provider Nurse Practitioner
DX: R13.12 Dysphagia, oropharyngeal phase (principal)
CPT/HCPCS: 74230; 92611

== ENCOUNTER → 2024-06-09 14:27 | Outpatient (BNV) | payer MEDICARE, OTHER, SELFPAY | PROVIDERS: Visit Provider Radiology Diagnostic Radiology | DX: R13.10 Dysphagia, unspecified (principal) | CPT/HCPCS: 74230 ==

== ENCOUNTER 2024-09-21 06:47 | Outpatient (REF) | payer MEDICARE, OTHER, SELFPAY ==
[2024-09-21 07:44] LABS: Alanine Aminotransferase 16 U/L (0-40); Albumin Level 3.3 g/dL (3.5-5.0); Alkaline Phosphatase 80 U/L (39-117); Anion Gap 13 (12-20); Aspartate Amino Transferase 29 U/L (5-37); Bilirubin Total 0.7 mg/dL (0.0-1.0); Blood Urea Nitrogen 19 mg/dL (9-16); Calcium 8.7 mg/dL (8.4-10.2); Carbon Dioxide 18 mmol/L (22-29); Chloride 112 mmol/L (96-108); Estimated Glomerular Filt Rate > 60; Glucose Random 92 mg/dL (60-115); Potassium 4.1 mmol/L (3.3-5.1); Sodium 139 mmol/L (135-145); Total Protein 6.1 g/dL (6.5-8.0)
== END 2024-09-21 06:48 | disposition home or self-care (01) ==
LOC: HO.HSH3W 06:47
PROVIDERS: Visit Provider Nurse Practitioner
DX: Z20.822 Contact with and (suspected) exposure to COVID-19 (principal)
CPT/HCPCS: 36415; 80053

== ENCOUNTER 2025-04-22 07:22 | Outpatient (REF) | payer MEDICARE, OTHER, SELFPAY ==
--- OUTSIDE RECORDS SUMMARY | 2025-04-22 07:26 | XMS_ITS | Encounter Summary ---
Author Organization [employer] Address [address] [place] [id number] Care Team Providers Care Psychologist Counseling Name Role Phone Unavailable Primary Care Provider Unavailabl e Encounter Details Date Type Department Care Team (Latest Contact Info) Description 12/27/2020 Abstract [facility] Dental, Provider, DDS Social History Tobacco Use Types Packs/Day Years Used Date Smoking Tobacco: Never Assessed Sex and Gender Information Value Date Recorded Sex Assigned at Male 07/22/2022 10:37 AM EDT Legal Sex Male 10:37 AM EDT Gender Identity Male 07/22/2022 10:37 AM EDT Sexual Orientation Straight 07/22/2022 10 :37 AM EDT documented as of this encounter Plan of Treatment Upcoming Encounters Date Type Department Care Team (Late st Contact Info) Description 05/18/2025 9:45 AM EDT Office Visit [facility] [address] [place] [address] Hanh Lincoln 05/18/2025 1:00 PM EDT Office Visit [facility] [address] [place] [address] Hanh Lincoln documented as of this encounter Visit Diagnoses Not on filedocumented in this encounter
[2025-04-22 07:42] LABS: Hematocrit 36.5 % (42.0-52.0); Hemoglobin 12.4 g/dl (14.0-18.0); Mean Corpuscular HGB Conc 34.0 g/dl (31.0-36.0); Mean Corpuscular Hemoglobin 30.8 pg (27.0-33.0); Mean Corpuscular Volume 90.6 fL (80.0-98.0); NRBC Abs Auto 0.000 X10*3/uL (0.0-0.012); NRBC Pct Auto 0.0 /100WBC (0.0-0.2); Platelet Count 180 X10*3/uL (160-400); Red Blood Count 4.03 X10*6/uL (4.60-5.80); White Blood Count 5.7 X10*3/uL (4.8-10.8)
[2025-04-22 12:57] LABS: OBS Int Ctl Valid YES; OBS1 POSITIVE (NEGATIVE)
== END 2025-04-22 07:23 | disposition home or self-care (01) ==
LOC: HO.HSH3W 07:22
PROVIDERS: Visit Provider Nurse Practitioner
DX: Z13.89 Encounter for screening for other disorder (principal)
CPT/HCPCS: 36415; 82272; 85027

== ENCOUNTER 2025-04-23 00:56 | Outpatient (REF) | payer MEDICARE, OTHER, SELFPAY ==
[2025-04-23 01:04] LABS: OBS Int Ctl Valid YES; OBS1 POSITIVE (NEGATIVE)
[2025-04-23 21:38] LABS: OBS Int Ctl Valid YES; OBS1 POSITIVE (NEGATIVE)
== END 2025-04-23 00:57 | disposition home or self-care (01) ==
LOC: HO.HSH3W 00:56
PROVIDERS: Visit Provider Nurse Practitioner Acute Care
DX: R19.5 Other fecal abnormalities (principal)
CPT/HCPCS: 82272

== ENCOUNTER 2025-04-25 06:33 | Outpatient (REF) | payer MEDICARE, OTHER, SELFPAY ==
[2025-04-25 06:36] LABS: MANUAL DIFF FLAG NO
[2025-04-25 06:59] LABS: Hematocrit 34.1 % (42.0-52.0); Hemoglobin 11.7 g/dl (14.0-18.0); Imm Gran Abs Auto 0.01 X10*3/uL (0.00-0.03); Imm Gran Pct Auto 0.2 % (0.0-0.4); Lymphocytes Absolute Auto 1.2 X10*3/uL (1.2-4.9); Mean Corpuscular HGB Conc 34.3 g/dl (31.0-36.0); Mean Corpuscular Hemoglobin 30.6 pg (27.0-33.0); Mean Corpuscular Volume 89.3 fL (80.0-98.0); NRBC Abs Auto 0.000 X10*3/uL (0.0-0.012); NRBC Pct Auto 0.0 /100WBC (0.0-0.2); Platelet Count 157 X10*3/uL (160-400); Red Blood Count 3.82 X10*6/uL (4.60-5.80); White Blood Count 4.7 X10*3/uL (4.8-10.8)
== END 2025-04-25 06:34 | disposition home or self-care (01) ==
LOC: HO.HSH3W 06:33
PROVIDERS: Internal Medicine Interventional Cardiology; Visit Provider Nurse Practitioner
DX: K62.5 Hemorrhage of anus and rectum (principal)
CPT/HCPCS: 36415; 85025

== ENCOUNTER 2025-05-02 07:47 | Outpatient (REF) | payer MEDICARE, OTHER, SELFPAY ==
[2025-05-02 07:49] LABS: MANUAL DIFF FLAG NO
--- OUTSIDE RECORDS SUMMARY | 2025-05-02 07:50 | XMS_ITS | Encounter Summary ---
Author Organization [employer] Address [address] [place] [address] [place] [address] Care Team Providers Care Business Development Professional Name Role Phone Unavailable Primary Care Provider Unavailabl e Encounter Details Date Type Department Care Team (Latest Contact Info) Description 12/27/2020 Abstract [facility] CONVERSION[facility] Dental, Provider, DDS Social History Tobacco [...] Team (Late st Contact Info) Description 05/18/2025 1:00 PM EDT Office Visit [facility] [address] [place] [address] Hanh Lincoln documented as of this encounter Visit Diagnoses Not on filedocumented in this encounter
[2025-05-02 08:01] LABS: Hematocrit 35.0 % (42.0-52.0); Hemoglobin 11.8 g/dl (14.0-18.0); Imm Gran Abs Auto 0.01 X10*3/uL (0.00-0.03); Imm Gran Pct Auto 0.2 % (0.0-0.4); Lymphocytes Absolute Auto 1.3 X10*3/uL (1.2-4.9); Mean Corpuscular HGB Conc 33.7 g/dl (31.0-36.0); Mean Corpuscular Hemoglobin 30.9 pg (27.0-33.0); Mean Corpuscular Volume 91.6 fL (80.0-98.0); NRBC Abs Auto 0.000 X10*3/uL (0.0-0.012); NRBC Pct Auto 0.0 /100WBC (0.0-0.2); Platelet Count 199 X10*3/uL (160-400); Red Blood Count 3.82 X10*6/uL (4.60-5.80); White Blood Count 5.3 X10*3/uL (4.8-10.8)
[2025-05-02 08:23] LABS: Iron 57 mcg/dL (45-160); Percent Iron Saturation 26 % (15-50); Total Iron Binding Capacity 216 mcg/dL (228-428); Unsaturated Iron Binding 159 ug/dL
[2025-05-02 08:49] LABS: Ferritin 283 ng/mL (20-250)
[2025-05-02 09:04] LABS: Folate 7.5 ng/mL (> or = 4.0); Vitamin B12 733 pg/mL (200-900)
== END 2025-05-02 07:48 | disposition home or self-care (01) ==
LOC: HO.HSH3W 07:47
PROVIDERS: Nurse Practitioner; Visit Provider Nurse Practitioner Acute Care
DX: D64.9 Anemia, unspecified (principal)
CPT/HCPCS: 36415; 82607; 82728; 82746; 83540; 85025

== ENCOUNTER 2025-05-24 07:19 | Outpatient (REF) | payer MEDICARE, OTHER, SELFPAY ==
--- OUTSIDE RECORDS SUMMARY | 2025-05-24 07:22 | XMS_ITS | Encounter Summary ---
Author Organization [employer] Address [address] [place] [address] [place] [address] Care Team Providers Care Homicide Squad Sergeant Name Role Phone Unavailable Primary Care Provider Unavailabl e Encounter Details Date Type Department Care Team (Latest Contact Info) Description 12/27/2020 Abstract [facility] CONVERSION[facility] Dental, Provider, DDS Social History Tobacco [...] Care Team (Late st Contact Info) Description 06/01/2025 3:30 PM EDT Office Visit [facility] [address] [place] [address] Tremaine Bauer, NEFTALY [address] [place] [address] documented as of this encounter Visit Diagnoses Not on filedocumented in this encounter
--- OUTSIDE RECORDS SUMMARY | 2025-05-24 07:22 | XMS_ITS | Clinical Summary ---
Author Organization [employer] Address [address] [facility] 7t [place] [address] Care Team Providers Care Clinical Nursing Instructor Name Role Phone Unavailable Primary Care Provider Unavailabl e Allergies No known active allergies Medications divalproex sprinkle (Depakote Sprinkle) [address] capsule Take 2 capsules by mouth every 12 (twelve) hours. Active magnesium hydroxide (Milk of Magnesia) 400 MG/5ML suspension Take 30 mL by mouth at bed time. Active metoprolol tartrate (Lopressor) 25 MG tablet Take 1 tablet by mouth every 12 (twelve) hours. Active Multiple Vitamin (Multi-Vitamin) tablet take 1 tablet by oral route every day with food Active predniSONE (Deltasone) 5 MG tablet Take 1 tablet by mouth at bed time. Active risperiDONE (RisperDAL) 0.25 MG tablet Take 2 tablets by mouth every 12 (twelve) hours. Active sennosides (Senokot) 8.6 MG tablet Take 2 tablets by mouth at bed time. Active sodium phosphate (Fleets) 7-19 GM/118ML enema enema Active thiamine (Vitamin B-1) 100 MG tablet Active acetaminophen (Tylenol) 325 MG tablet Take 1 tablet by mouth every 4 (four) hours. 0 Active amLODIPine (Norvasc) 5 MG tablet 3 Active atorvastatin (Lipitor) 40 MG tablet 3 Active cyanocobalamin (Vitamin B-12) 500 MCG tablet Take 500 mcg by mouth in the morning. Active gabapentin (Neurontin) 300 MG capsule 3 Active metoprolol succinate XL (Toprol-XL) 50 MG 24 hr tablet Take 50 mg by mouth. 0 Active bisacodyl (Dulcolax) 10 MG suppository Insert 1 suppository into the rectum at bed time. 0 Active Carboxymethylcel l-Glycerin PF 0.5-1 % solution Administer into affected eye(s). BOTH EYES, PRN 4x in 24 hours Active aspirin 81 MG EC tablet Take 81 mg by mouth in the morning. Active LORazepam (Ativan) 0.5 MG tablet Take by mouth. Activ e apixaban (Eliquis) 2.5 MG tablet Take 2.5 mg by mouth 2 times daily. Active nystatin (Mycostatin) 840364 UNIT/GM powder Apply topically 2 times daily. Active traMADol (Ultram) 50 MG tablet Take 50 mg by mouth. Active omeprazole (PriLOSEC) [address] capsule Take 20 mg by mouth after breakfast and after evening meal. Do not crush or chew. Active hydrocortisone 1 % cream Apply topically 2 times daily. Active Active Problems Problem Noted Date Diagnosed Date Vascular dementia 01/14/2025 Arteriosclerosis of coronary artery 10/04/2011 Encounters Date Type Department Care Team Description 05/18/2025 1:00 PM EDT Office Visit [facility] [address] [place] [phone] Hanh Lincoln Dental plaque (Primary Dx); Dental calculus from Last 3 Months Social History Tobacco Use Types Packs/Day Years Used Date Smoking Tobacco: Never Passive Smoke Exposure: Never Smokeless Tobacco: Never Tobacco Cessation:Counseling Given: Not Answered Alcohol Use Standard Drinks/Week Comments Defer 0 (1 standard drink = 0.6 oz pur e alcohol) Sex and Gender Information Value Date Recorded Sex Assigned at Male 07/22/2022 10:37 AM EDT Legal Sex Male 10:37 AM EDT Gender Identity Male 07/22/2022 10:37 AM EDT Sexual Orientation Straight 07/22/2022 10 :37 AM EDT Last Filed Vital Signs Vital Sign Reading Time Taken Comments Blood Pressure - - Pulse 72 12/11/2022 10:01 AM EDT Temperature - - Respiratory Rate - - Oxygen Saturation - - Inhaled Oxygen Concentration - - Weight - - Height - - Body Mass Index - - Plan of Treatment Upcoming Encounters Date Type Department Care Team (Late st Contact Info) Description 06/01/2025 3:30 PM EDT Office Visit [facility] [address] [place] [phone] Tremaine Bauer, DMD [address] [place], [place] [phone] Health Maintenance Due Date Last Done Comments Dental X-Ray: Bitewings 1940 Dental X-Ray: Full Mouth 1941 Depression Screening 1941 Lipid Panel 1941 SDOH Screening 1941 Alcohol/Substance Use Screening 1953 DTaP/Tdap/Td Vaccines (1 - Tdap) 05/12/2010 05/11/2010 COVID-19 Vaccine ( season) 2024 07/10/2023, 03/14/2023, 06/10/2022, Additional history exists Influenza Vaccine (#1) 2025 , 06/26/2023, 06/26/2022, Additional history exists Dental Oral Exam 07/30/2025 01/26/2025, , 08/27/2023, Additional history exists Dental Prophylaxis 11/19/2025 05/18/2025, 0 10/28/2024, 06/16/2024, Additional history exists Tobacco Screening 05/18/2026 05/18/2025 Pneumococcal Vaccine: 50+ Years Completed 09/06/2015, 05/11/2010 Zoster Vaccines Completed 12/01/2019, 05/23, 07/30/2012 RSV Patients and Patients Aged 60 years or older Completed 08/07/2023 HIB Vaccines Aged Out No longer eligi ble based on patient's age to complete this topic HPV Vaccines Aged Out No longer eligi ble based on patient's age to complete this topic Hepatitis A Vaccines Aged Out No long er eligible based on patient's age to complete this topic Hepatitis B Vaccines Aged Out No long er eligible based on patient's age to complete this topic IPV Vaccines Aged Out No longer eligi ble based on patient's age to complete this topic Meningococcal B Vaccine Aged Out No l onger eligible based on patient's age to complete this topic Meningococcal Vaccine Aged Out No david marcelo eligible based on patient's age to complete this topic RSV under 20 months Aged Out No longe r eligible based on patient's age to complete this topic Rotavirus Vaccines Aged Out No longer eligible based on patient's age to complete this topic Procedures Procedure Name Priority Date/Time Associated Diagnosis Comments TOPICAL APPLICATION OF FLUORIDE VARNISH Routine 05/18/2025 1:00 PM EDT Dental plaque Dental calculus PROPHYLAXIS - ADULT Routine 05/18/2025 1 :00 PM EDT Dental plaque Dental calculus PERIODIC ORAL EVALUATION - ESTABLISHED PATIENT Routine 01/26/2025 11:00 AM EDT from Last 3 Months or Most Recently Relevant to Health Maintenance Insurance DENTAL - HSN PARTIAL (MEDICAID)
[2025-05-24 07:36] LABS: Hematocrit 34.5 % (42.0-52.0); Hemoglobin 11.4 g/dl (14.0-18.0); Imm Gran Abs Auto 0.02 X10*3/uL (0.00-0.03); Imm Gran Pct Auto 0.4 % (0.0-0.4); Lymphocytes Absolute Auto 1.6 X10*3/uL (1.2-4.9); MANUAL DIFF FLAG NO; Mean Corpuscular HGB Conc 33.0 g/dl (31.0-36.0); Mean Corpuscular Hemoglobin 30.4 pg (27.0-33.0); Mean Corpuscular Volume 92.0 fL (80.0-98.0); NRBC Abs Auto 0.000 X10*3/uL (0.0-0.012); NRBC Pct Auto 0.0 /100WBC (0.0-0.2); Platelet Count 183 X10*3/uL (160-400); Red Blood Count 3.75 X10*6/uL (4.60-5.80); White Blood Count 5.3 X10*3/uL (4.8-10.8)
== END 2025-05-24 07:20 | disposition home or self-care (01) ==
LOC: HO.HSH3W 07:19
PROVIDERS: Internal Medicine; Visit Provider Nurse Practitioner
DX: D64.9 Anemia, unspecified (principal)
CPT/HCPCS: 36415; 85025

== ENCOUNTER 2025-06-14 06:59 | Outpatient (REF) | payer MEDICARE, OTHER, SELFPAY ==
[2025-06-14 07:15] LABS: Hematocrit 33.2 % (42.0-52.0); Hemoglobin 11.1 g/dl (14.0-18.0); Mean Corpuscular Volume 90.7 fL (80.0-98.0); Platelet Count 178 X10*3/uL (160-400); Red Blood Count 3.66 X10*6/uL (4.60-5.80)
== END 2025-06-14 07:00 | disposition home or self-care (01) ==
LOC: HO.HSH3W 06:59
PROVIDERS: Visit Provider Nurse Practitioner
DX: Z13.89 Encounter for screening for other disorder (principal)
CPT/HCPCS: 36415; 85025

== ENCOUNTER 2025-08-13 10:57 | Outpatient (REF) | payer MEDICARE, OTHER, SELFPAY ==
[2025-08-13 10:59] LABS: MANUAL DIFF FLAG NO
--- OUTSIDE RECORDS SUMMARY | 2025-08-13 11:00 | XMS_ITS | Clinical Summary ---
Author Organization [employer] Address [address] [facility] 7t [place] [address] Care Team Providers Care Proposal Development Manager Name Role Phone Unavailable Primary Care Provider [...] mouth 2 times daily. Active nystatin (Mycostatin) 233227 UNIT/GM powder Apply topically 2 times daily. [...] Encounters Date Type Department Care Team Description 06/01/2025 3:30 PM EDT Office Visit [facility] [address] [place] [phone] Tremaine Bauer DMD 05/18/2025 1:00 PM EDT Office Visit [facility] [address] [place] [phone] Hanh Lincoln Dental plaque (Primary Dx); Dental [...] Mass Index - - Plan of Treatment Health Maintenance Due Date Last Done Comments Dental X-Ray: Bitewings 1941 Dental X-Ray: Full Mouth 1941 Depression Screening 1941 Lipid Panel 1941 SDOH Screening 1941 Alcohol/Substance Use Screening 1953 DTaP/Tdap/Td Vaccines (1 - Tdap) 05/12/2010 05/11/2010 COVID-19 Vaccine (8 - season) 2025 07/10/2023, 03/14/2023, 06/10/2022, Additional history exists Influenza Vaccine (#1) 2025 , 06/26/2023, 06/26/2022, Additional history exists Dental Prophylaxis 11/19/2025 05/18/2025, 0 10/28/2024, 06/16/2024, Additional history exists Dental Oral Exam 11/30/2025 06/01/2025, 03/2025, 03/15/2024, Additional history exists Tobacco Screening 06/01/2026 06/01/2025 Pneumococcal Vaccine: 50+ Years Completed 09/06/2015, 05/11/2010 [...] Procedure Name Priority Date/Time Associated Diagnosis Comments PERIODIC ORAL EVALUATION - ESTABLISHED PATIENT Routine 06/01/2025 3:30 PM EDT TOPICAL APPLICATION OF FLUORIDE VARNISH Routine 05/18/2025 1:00 PM EDT Dental plaque Dental calculus PROPHYLAXIS - ADULT Routine 05/18/2025 1 :00 PM EDT Dental plaque Dental calculus from Last 3 Months Insurance [address]
--- OUTSIDE RECORDS SUMMARY | 2025-08-13 11:00 | XMS_ITS | Encounter Summary ---
Author Organization [employer] Address [address] [facility] 7t [place] [address] Care Team Providers Care Sole Rougher Name Role Phone Unavailable Primary Care Provider Unavailabl e Encounter Details Date Type Department Care Team (Latest Contact Info) Description 12/27/2020 Abstract [facility] CONVERSIONS Dental, Provider, DDS Social History Tobacco Use Types Packs/Day Years Used Date Smoking Tobacco: Never Assessed Sex and Gender Information Value Date Recorded Sex Assigned at Male 07/22/2022 10:37 AM EDT Legal Sex Male 10:37 AM EDT Gender Identity Male 07/22/2022 10:37 AM EDT Sexual Orientation Straight 07/22/2022 10 :37 AM EDT documented as of this encounter Plan of Treatment Not on file documented as of this encounter Visit Diagnoses Not on filedocumented in this encounter
[2025-08-13 11:18] LABS: Hematocrit 33.4 % (42.0-52.0); Hemoglobin 11.0 g/dl (14.0-18.0); Imm Gran Abs Auto 0.02 X10*3/uL (0.00-0.03); Imm Gran Pct Auto 0.3 % (0.0-0.4); Lymphocytes Absolute Auto 1.0 X10*3/uL (1.2-4.9); Mean Corpuscular HGB Conc 32.9 g/dl (31.0-36.0); Mean Corpuscular Hemoglobin 29.6 pg (27.0-33.0); Mean Corpuscular Volume 89.8 fL (80.0-98.0); NRBC Abs Auto 0.000 X10*3/uL (0.0-0.012); NRBC Pct Auto 0.0 /100WBC (0.0-0.2); Platelet Count 195 X10*3/uL (160-400); Red Blood Count 3.72 X10*6/uL (4.60-5.80); White Blood Count 5.9 X10*3/uL (4.8-10.8)
== END 2025-08-13 10:58 | disposition home or self-care (01) ==
LOC: HO.HSH3W 10:57
PROVIDERS: Internal Medicine Endocrinology, Diabetes & Metabolism; Visit Provider Nurse Practitioner
DX: K92.2 Gastrointestinal hemorrhage, unspecified (principal)
CPT/HCPCS: 36415; 85025

== ENCOUNTER 2025-08-23 06:37 | Outpatient (REF) | payer MEDICARE, OTHER, SELFPAY ==
--- OUTSIDE RECORDS SUMMARY | 2025-08-23 06:41 | XMS_ITS | Encounter Summary ---
Author Organization [employer] Address [address] [place] [phone] Care Team Providers Care Head Of Sales Promotion Name Role Phone Unavailable Primary Care Provider Unavailabl e Encounter Details Date Type Department Care Team (Latest Contact Info) Description 12/27/2020 Abstract [facility] CONVERSIONS Dental, Provider, DDS Social History Tobacco [...] Care Team (Late st Contact Info) Description 08/24/2025 2:30 PM EST Office Visit [facility] [address] [place] [address] Yojana Gonsalves [address] [place] [phone] documented as of this encounter Visit Diagnoses Not on filedocumented in this encounter
--- OUTSIDE RECORDS SUMMARY | 2025-08-23 06:41 | XMS_ITS | Clinical Summary ---
Author Organization [employer] Address [address] [facility] [address]t [place] [address] Care Team Providers Care Program Strategist Name Role Phone Unavailable Primary Care Provider [...] mouth 2 times daily. Active nystatin (Mycostatin) 711677 UNIT/GM powder Apply topically 2 times daily. [...] Description 06/01/2025 3:30 PM EDT Office Visit [facility] [address] [place] [phone] Tremaine Bauer DMD from Last 3 Months Social History Tobacco [...] 08/24/2025 2:30 PM EST Office Visit [facility] [address] [place] [phone] Yojana Gonsalves [address] [place] [address] Health Maintenance Due Date Last Done Comments Dental X-Ray: Bitewings 1941 Dental X-Ray: Full Mouth 1941 Depression Screening 1941 Lipid Panel 1941 SDOH Screening 1941 Alcohol/Substance Use Screening 1953 DTaP/Tdap/Td Vaccines (1 - Tdap) 05/12/2010 05/11/2010 COVID-19 Vaccine ( season) 2025 07/10/2023, 03/14/2023, 06/10/2022, Additional history [...] ESTABLISHED PATIENT Routine 06/01/2025 3:30 PM EDT PROPHYLAXIS - ADULT Routine 05/18/2025 1 :00 PM EDT Dental plaque Dental calculus from Last 3 Months or Most Recently Relevant to Health Maintenance Insurance DENTAL - HSN PARTIAL (MEDICAID)
[2025-08-23 07:13] LABS: Hematocrit 34.1 % (42.0-52.0); Hemoglobin 11.3 g/dl (14.0-18.0); Mean Corpuscular HGB Conc 33.1 g/dl (31.0-36.0); Mean Corpuscular Hemoglobin 29.6 pg (27.0-33.0); Mean Corpuscular Volume 89.3 fL (80.0-98.0); NRBC Abs Auto 0.000 X10*3/uL (0.0-0.012); NRBC Pct Auto 0.0 /100WBC (0.0-0.2); Platelet Count 203 X10*3/uL (160-400); Red Blood Count 3.82 X10*6/uL (4.60-5.80); White Blood Count 5.3 X10*3/uL (4.8-10.8)
[2025-08-23 07:38] LABS: Iron 44 mcg/dL (45-160); Percent Iron Saturation 17 % (15-50); Total Iron Binding Capacity 254 mcg/dL (228-428); Unsaturated Iron Binding 210 ug/dL
[2025-08-23 07:53] LABS: Ferritin 62 ng/mL (20-250)
[2025-08-23 08:07] LABS: Folate 10.0 ng/mL (> or = 4.0); Vitamin B12 828 pg/mL (200-900)
== END 2025-08-23 06:38 | disposition home or self-care (01) ==
LOC: HO.HSH3W 06:37
PROVIDERS: Visit Provider Nurse Practitioner
DX: D64.9 Anemia, unspecified (principal)
CPT/HCPCS: 36415; 82607; 82728; 82746; 83540; 85027

== ENCOUNTER 2025-08-31 13:09 | Outpatient (AMB) | payer MEDICARE, OTHER, SELFPAY ==
--- NOTE | 2025-08-31 13:11 | MHC.OFFVIS ---
Vital Signs 08/31/25 13:16 BP 118/80 Blood Pressure Location Lt brachial Position Sitting Pulse 88 Intake Visit Reasons: blood in stool Intake Note: Patient new consult for blood in stool. Patient cc: dark blood in stool. Director Community Organization Required: No Accompanied by: Family/Other Allergies No Known Allergies Allergy (Verified 08/31/25 14:10) HPI HPI blood in stool: Details: Patient is a 85-year-old male with PMH of vascular dementia, AFib on Eliquis, hyperlipidemia, hypertension. Referred by PCP for blood in stools. Patient is accompanied by [facility] and [facility] staffSulaiman. Onset in March. He had positive stool occult blood tests on April 22 and , and an episode of dark red blood in his stool four times on April 21. The bleeding is reported to occur at least every other day. No evidence of associated abdominal pain, diarrhea, or constipation. The patient has a history of chronic normocytic anemia dating back to September 2019. His iron was recently found to be mildly low at 44 on August 23, and he was started on iron and vitamin C. His past medical history is also significant for atrial fibrillation, for which he takes Eliquis, hypertension, hyperlipidemia, and Alzheimer's disease. He has a history of a stroke, which resulted in dysphagia, and he previously received cardiac stents many years ago. Regarding his GI history, the patient has always refused a colonoscopy. He had a history of rectal bleeding many years ago but denies a history of reflux or ulcers. A barium swallow performed on June 09, 2024, for dysphagia evaluation showed trace laryngeal penetration but no aspiration. Historians deny evidence of fever/chills, n/v, appetite changes, pyrosis, regurgitation,dysphasia, unintentional wt loss. Social hx: -He has a history of alcoholism but has been sober since he was 71 years old. -The patient resides at a soldier's home. - family hx as below -[] personal hx of CA -[] significant cardiopulmonary history -tolerated anesthesia in the past [] difficulty. [facility] Medical History (Updated 08/31/25 @ 15:46 by Jannette Warner CNP) Anemia Blood in stool Vitamin B12 deficiency Atrial fibrillation Hyperlipidemia Vascular dementia Hypertension Social History Household Members: Other Housing: Snf Patient Tobacco Use Status: Never used Tobacco service: Yes Review of Systems Const Reports as per [facility] ENT Reports as per [facility] Card Reports as per [facility] Resp Reports as per [facility] GI Reports as per [facility] Reports as per HPI Physical Exam Vital Signs: Last Vital Signs Pulse 88 08/31/25 13:16 BP 118/80 08/31/25 13:16 Const General: healthy appearing, no acute distress and well developed Nutritional Appearance: average body habitus Orientation/consciousness: patient oriented x3 HEENT Head: Yes normal to inspection, Yes normocephalic and Yes atraumatic Face and sinus: Yes normal facial exam Eyes General: appearance normal, both eyes and all related structures Neck Neck: Yes normal visual inspection Resp Effort & Inspection: normal respiratory effort, able to speak in complete sentences and no tracheal deviation Cardio Jugular venous distension: no JVD Heart sounds: Murmur heart sound present GI Inspection: Yes normal to inspection, No distended and Yes obesity Palpation (GI): Soft to palpation, not firm, nontender and No hepatosplenomegaly present Auscultation: normal bowel sounds Neuro General: patient oriented x3 Gait exam (Neuro): Normal gait present Psych Appearance: grossly normal Speech and movement: Mute speech present Affect: normal affect Attitude: cooperative Insight: Other insight findings present (Psych) (dementia) Judgement: Other judgement findings present (Psych) (dementia) Assessment & Plan Assessment & Plan (1) Blood in stool: Code(s): K92.1 - Melena Category: Medical Plan: The patient presents with hematochezia since March, confirmed by positive occult stool tests, with stool described as dark red. - The risks and benefits of a colonoscopy were discussed, considering the patient's age, comorbidities including atrial fibrillation, and the need for sedation. Shared decicion made to proceed with barium enema. Prep will be required but not sedation. He may need his PRN lorazepam at time of imaging, Facility provider/nurse to review at time of scheduling imaging. - The details of the prep, including the option for a low-volume solution were reviewed. Letter with instructions sent with patient. Unable to printed prescriptions as requested. We did speak with facility nurse who confirmed that miralax prep would be ordered by the facility provider. (2) Anemia: Code(s): D64.9 - Anemia, unspecified Category: Medical Qualifiers: Anemia type: iron deficiency Iron deficiency anemia type: unspecified iron deficiency Qualified Code(s): D50.9 - Iron deficiency anemia, unspecified Plan: The patient has a chronic normocytic anemia since 2019 and a recent mildly low iron level, which is likely secondary to gastrointestinal blood loss. - He was recently started on iron and vitamin C. - It is recommended to continue the iron supplementation, and no changes will be made at this time. (3) Atrial fibrillation: Code(s): I48.91 - Unspecified atrial fibrillation Category: Medical Qualifiers: Atrial fibrillation type: unspecified Qualified Code(s): I48.91 - Unspecified atrial fibrillation Plan: The patient is on Eliquis for atrial fibrillation. Rate controlled with metoprolol. All managed by facility provider. Plan Follow-up after BE or sooner as needed Time: I spent a total of 60 minutes on the date of encounter which includes: Preparing to see the patient (reviewed previous documentation, test results and medical history) Performing a medically appropriate exam and/or evaluation Ordering medications, tests, and procedures Documenting clinical information in the health record Orders: Orders FL barium enema Today K92.1 - Melena Medications: New bisacodyl take four tablets once day of colonoscopy prep 20 mg (4 x 5 mg) PO ONCE 4 tabs 0RF bisacodyl take four tablets once day of colonoscopy prep 20 mg (4 x 5 mg) PO ONCE 4 tabs 0RF polyethylene glycol 3350 (Miralax) per colonoscopy prep instructions 238 grams PO ONCE 238 grams 0RF polyethylene glycol 3350 (Miralax) per colonoscopy prep instructions 238 grams PO ONCE 238 grams 0RF bisacodyl take four tablets once day of colonoscopy prep 20 mg (4 x 5 mg) PO ONCE 4 tabs 0RF polyethylene glycol 3350 (Miralax) per colonoscopy prep instructions 238 grams PO ONCE 238 grams 0RF Coding Level of Care Code New Pt New Pt Level 5 (85618) Patient Type New Diagnoses Blood in stool K92.1 Iron deficiency anemia, unspecified iron deficiency anemia type D50.9 Anemia type: iron deficiency Iron deficiency anemia type: unspecified iron deficiency Atrial fibrillation, unspecified type I48.91 Atrial fibrillation type: unspecified
[2025-08-31 13:16] VITALS: BP 118/80; PULSE 88
--- OUTSIDE RECORDS SUMMARY | 2025-08-31 20:27 | XMS_ITS | Clinical Summary ---
Author Organization [employer] Address [address] [facility] [address] [place] [address] Care Team Providers Care Industrial Controller Name Role Phone Unavailable Primary Care Provider [...] mouth 2 times daily. Active nystatin (Mycostatin) 180386 UNIT/GM powder Apply topically 2 times daily. Active traMADol (Ultram) 50 MG tablet Take 50 mg by mouth. Active omeprazole (PriLOSEC) [address] capsule Take 20 mg by mouth after breakfast and after evening meal. Do not crush or chew. Active hydrocortisone 1 % cream Apply topically 2 times daily. Active ferrous sulfate (FeroSul) 325 (65 Fe) MG tablet Take 325 mg by mouth with breakfast. Active ascorbic acid (Vitamin C) 500 MG tablet Take 500 mg by mouth Once per day. Active selenium sulfide (Selsun) 1 % lotion Apply 1 Application. topically 1 (one) time per week. Active Active Problems Problem Noted Date Diagnosed Date Vascular dementia 01/14/2025 Arteriosclerosis of coronary artery 10/04/2011 Encounters Date Type Department Care Team Description 08/24/2025 2:30 PM EST Office Visit [facility] [address] [place] [phone] Yojana Gonsalves 06/01/2025 3:30 PM EDT Office Visit [facility] [address] [place] [address] Tremaine Bauer DMD from Last 3 Months [...] Tdap) 05/12/2010 05/11/2010 COVID-19 Vaccine (8 - 2024- season) 2025 07/10/2023, 03/14/2023, 06/10/2022, Additional history exists Influenza Vaccine (#1) 2025 , 06/26/2023, 06/26/2022, Additional history exists Dental Oral Exam 11/30/2025 06/01/2025, 03/2025, 03/15/2024, Additional history exists Dental Prophylaxis 02/23/2026 08/24/2025, 0 05/18/2025, 10/28/2024, Additional history exists Tobacco Screening 08/24/2026 08/24/2025 Pneumococcal Vaccine: 50+ Years Completed 09/06/2015, 05/11/2010 [...] Procedure Name Priority Date/Time Associated Diagnosis Comments Full PROPHYLAXIS - ADULT Routine 08/24/2025 2:30 PM EST Full TOPICAL APPLICATION OF FLUORIDE VARNISH Routine 08/24/2025 2:30 PM EST BEHAVIOR MANAGEMENT Routine 08/24/2025 2:30 PM EST PERIODIC ORAL EVALUATION - ESTABLISHED PATIENT Routine 06/01/2025 3:30 PM EDT from Last 3 Months Insurance DENTAL - HSN PARTIAL (MEDICAID)
--- OUTSIDE RECORDS SUMMARY | 2025-08-31 20:27 | XMS_ITS | Encounter Summary ---
Author Organization [email or web address] Address [address] [facility] 7t [place] [address] Care Team Providers Care Mail List Librarian Name Role Phone Unavailable Primary Care Provider Unavailabl e Encounter Details Date Type Department Care Team (Latest Contact Info) Description 12/27/2020 Abstract [facility] CONVERSIONS Dental, Provider, DDS Social History [...]
== END 2025-08-31 14:46 | disposition home or self-care (01) ==
LOC: HO.HGI 13:09
PROVIDERS: PCP Internal Medicine; Visit Provider Nurse Practitioner Family
DX: K92.1 Melena (principal); D50.9 Iron deficiency anemia, unspecified; I48.91 Unspecified atrial fibrillation
CPT/HCPCS: 99205

== ENCOUNTER → 2025-08-31 13:09 | Outpatient (BNVA) | payer MEDICARE, OTHER, SELFPAY | PROVIDERS: PCP Internal Medicine; Visit Provider Nurse Practitioner Family | DX: K92.1 Melena (principal); D50.9 Iron deficiency anemia, unspecified; I48.91 Unspecified atrial fibrillation | CPT/HCPCS: 99202 ==

== ENCOUNTER 2025-09-13 10:44 | Outpatient (REF) | payer MEDICARE, OTHER, SELFPAY ==
--- NOTE | ~2025-09-13 | FL_ITS ---
EXAMINATION: XR BARIUM ENEMA CLINICAL INFORMATION: Melena COMPARISON: None available. TECHNIQUE: A KUB was obtained prior to barium. Patient was subsequently catheterized per rectum with a balloon inflation and retrograde administration of thin barium. Images were obtained as the barium progressed through the colon. After obtaining all images the balloon was deflated and removed. FINDINGS: There is good distention of rectum and the is visualized without any intraluminal filling defect or narrowing. Contrast opacifies the ascending colon including cecum. No reflux was seen into the terminal ileum. However appendix is visualized and appears unremarkable. Obstructing, constricting lesions seen. There is scattered colonic diverticulosis with mild sigmoid mural thickening suggestive of early colitis versus spasm.. FLUOROSCOPY TIME: 2 minutes 31 seconds DOSE AREA PRODUCT: 10.87 uGy-m2 (microgray-meter squared) FL/FL barium enema IMPRESSION: Scattered colonic diverticulosis without any intraluminal filling defect. Question spasm versus early diverticulitis in the proximal sigmoid colon. Electronically signed by: Mor Smith MD 09/13/2025 02:54 PM EST
--- OUTSIDE RECORDS SUMMARY | 2025-09-13 12:04 | XMS_ITS | Clinical Summary ---
Author Organization [employer] Address [address] [facility] [address]t [place] [address] Care Team Providers Care Control Equipment Electrician Name Role Phone Unavailable Primary Care Provider [...] mouth 2 times daily. Active nystatin (Mycostatin) 016693 UNIT/GM powder Apply topically 2 times daily. [...] Description 08/24/2025 2:30 PM EST Office Visit [facility] [address] [place] [phone] Yojana Gonsalves from Last 3 Months Social History Tobacco [...] Due Date Last Done Comments Dental X-Ray: Kartik 1940 Dental X-Ray: Full Mouth 1941 Depression [...] 3:30 PM EDT from Last 3 Months or Most Recently Relevant to Health Maintenance Insurance
--- OUTSIDE RECORDS SUMMARY | 2025-09-13 12:05 | XMS_ITS | Encounter Summary ---
Author Organization [email or web address] Address [address] [facility] [address]t [place] [address] Care Team Providers Care Lawn Service Supervisor Name Role Phone Unavailable Primary Care Provider Unavailabl e Encounter Details Date Type Department Care Team (Latest Contact Info) Description 12/27/2020 Abstract [facility] CONVERSIONS Dental, Provider, DDS Social History Tobacco [...]
== END 2025-09-13 10:45 | disposition home or self-care (01) ==
LOC: HO.XRAY 10:44
PROVIDERS: PCP Nurse Practitioner; Visit Provider Nurse Practitioner Family
DX: K92.1 Melena (principal)
CPT/HCPCS: 74270

== ENCOUNTER → 2025-09-13 10:46 | Outpatient (BNV) | payer MEDICARE, OTHER, SELFPAY | PROVIDERS: PCP Nurse Practitioner; Visit Provider Radiology Diagnostic Radiology | DX: K57.30 Diverticulosis of large intestine without perforation or abscess without bleeding (principal) | CPT/HCPCS: 74270 ==